=== PATIENT | female | born 1935 | race Caucasian/White ===

== ENCOUNTER 2016-05-06 10:53 | Inpatient (IN) | payer MEDICARE, OTHER ==
[~2016-05-06] VITALS: Ht 152.4 cm; Wt 86.5 kg
[2016-05-06] VITALS (7 sets, daily range): BP systolic 144–165; BP diastolic 48–86; PULSE 46–58; RESP 10–20; O2SAT 93–97
--- NOTE | 2016-05-06 10:57 | ED.REPORT ---
HPI-General Illness Date of Service May 06, 2016 ED Provider: Les Medina MD Pt is an 80 y.o. female who presents to the ED via EMS from [facility] for altered mental status. Staff at the care facility state that the pt has been fatigued and difficult to arouse. Her daughter, who currently lives in [place], was notified of these sx and called ED staff to state that they are similar to when she had hydrocephaly. The pt disclosed a sore throat to the nurse but denies this upon evaluation. She reports associated SOB. Denies nausea, vomiting , fever, and pain. Nursing Notes Stated Complaint: FALLING ASLEEP Chief Complaint: Neuro Symptoms/ Deficits Nursing Notes Reviewed: Yes Allergies: Coded Allergies: VAL Inhibitors (Unverified Allergy, Unknown, 05/06/16) General Time Seen by MD: 10:57 Transferred From: longterm Chief Complaint Altered mental status Hx Obtained From: Patient, Daughter, Elementary Education Tutor Arrived By: Ambulance Sudden in Onset?: Yes Onset Occurred: 9 - 12 hours ago Symptom Duration: Since onset Severity: Current: No pain currently Severity: Maximum: No pain Past Medical History Past Medical History Cerebrovascular disease NIDDM Daughter says she has had hydrocephalus Reports: Diabetes mellitus, Hypertension Social History Other Social History: Lives in [facility] Review of Systems Full Review of Systems Constitutional: Reports: Fatigue, Denies: Fever Ears / Nose / Throat: Denies: Sore throat Respiratory: Reports: Shortness of breath Cardiovascular: Denies: Chest pain GI: Denies: Abdominal pain, Nausea, Vomiting Neurologic: Reports: Change LOC Complete sys rev & neg: except as marked. Physical Exam Vital Signs Vital Signs Date Time Temp Pulse Resp B/P Pulse Ox O2 Delivery O2 Flow Rate FiO2 05/06/16 14:39 54 12 144/48 95 Room Air 05/06/16 14:29 58 17 145/64 95 Room Air 05/06/16 10:58 36.7 46 10 153/57 97 Room Air Initial VS: Reviewed Head / Eyes: Atraumatic, Normocephalic Abdomen / GI: No distention Extremities: Vascular intact, Neuro intact Skin: Warm, Dry, No cyanosis Psychiatric: Mood/affect normal, Behavior normal, Normal thought content General/Constitutional: No acute distress, Well appearing, Well developed, Well hydrated, Well nourished, Not toxic appearing Alertness: Positive: Sleeping but arousable ENT: Atraumatic, Airway patent, Pharynx NL Respiratory / Chest: Atraumatic, Breath sounds NL, Breath sounds = bilat, No respiratory distress Cardiovascular: Regular rhythm, Heart sounds NL, Peripheral circulation NL Heart Rate / Rhythm: Positive: Bradycardia No lower extremity edema Neurologic: Speech NL Mental Status: Positive: Disoriented to time, Negative: Disoriented to person, Disoriented to place Interpretation & Diagnostics Lab Results Interpretation Result Diagram: 05/06/16 1223 05/06/16 1223 Test 05/06/16 11:30 05/06/16 12:23 Urine Color Yellow (YELLOW) Urine Appearance Clear (CLEAR,HAZY) Urine pH 6.0 (5.0-8.0) Urine Specific [place] 1.016 (1.003-1.035) Urine Protein 30mg/dL (NEG,TRACE) Urine Glucose (UA) Negativemg/dL (NEGATIVE) Urine Ketones Negativemg/dL (NEGATIVE) Urine Occult Blood Negative (NEGATIVE) Urine Nitrite Negative (NEGATIVE) Urine Bilirubin Negative (NEGATIVE) Urine Urobilinogen Normalmg/dL (NORMAL) Urine Leukocyte Esterase Negative (NEGATIVE) Urine RBC 0-2/hpf (0-2) Urine WBC 0-5/hpf (0-5) Urine Epithelial Cells Few/hpf (NONE-MOD) Urine Crystals Oxalic acid crystals (NONE Urine Bacteria None/hpf (NONE-FEW) Urine Hyaline Casts None/lpf (NONE) Urine Granular Casts None seen (NONE SEEN) Urine Waxy Casts None seen (NONE SEEN) Urine Red Blood Cell Casts None seen (NONE SEEN) Urine White Blood Cell Casts None seen (NONE SEEN) Urine Mucus None seen (None Seen) Urine Trichomonas None seen (NONE SEEN) Urine Yeast None (NONE SEEN) Urinalysis Comment None Urine Culture Reflexed Not indicated White Blood Count 8.9th/mm3 (3.8-10.1) Red Blood Count 4.01mil/mm3 (3.90-5.20) Hemoglobin 11.7g/dL (12.0-15.6) Hematocrit 33.8% (35.0-46.0) Mean Corpuscular Volume 84.3fL (81-100) Mean Corpuscular Hemoglobin 29.2pg (27.0-35.0) Mean Corpuscular Hemoglobin Concent 34.6% (32.0-37.0) Red Cell Distribution Width 12.8% (12.3-15.4) Platelet Count 320bil/L (150-400) Neutrophils (%) (Auto) 63.9% (40-74) Lymphocytes (%) (Auto) 21.6% (14-46) Monocytes (%) (Auto) 9.5% (4-12) Eosinophils (%) (Auto) 4.3% (0-5) Basophils (%) (Auto) 0.5% (0-3) Sodium Level 121mEq/L (134-144) Potassium Level 3.9mEq/L (3.5-5.2) Chloride Level 83mEq/L (97-108) Carbon Dioxide Level 24mmol/L (18-29) Blood Urea Nitrogen 9mg/dL (8-27) Creatinine 0.86mg/dL (0.57-1.00) Estimat Glomerular Filtration Rate 91mL/min (>59) Glucose Level 76mg/dL (60-99) Lactic Acid Level 0.6mmol/L (0.4-2.0) Calcium Level 8.9mg/dL (8.5-10.1) Magnesium Level 1.6mg/dL (1.6-2.6) Total Bilirubin 0.3mg/dL (0.0-1.2) Aspartate Amino Transf (AST/SGOT) 16U/L (0-50) Alanine Aminotransferase (ALT/SGPT) 10U/L (0-32) Alkaline Phosphatase 76U/L (25-165) Troponin T 0.010ug/L (0.0-0.011) Total Protein 6.5g/dL (6.4-8.4) Albumin 3.6g/dL (3.4-5.0) ECG Interpretation Time: 12:11 Interpreted by: ED physician Normal ECG Interpretation: Normal sinus rhythm Rhythm / Conduction: Bradycardia (48) CT Head Interpretation IMPRESSION: 1. No definite acute cardiopulmonary disease. 2. Bilateral scattered hypodensities consistent with moderate chronic white matter small vessel ischemic changes. If there is clinical suspicion for superimposed acute process, further evaluation may be obtained with MRI. 3. Moderate cerebral volume loss. Dictated by: Cesar Clark M.D. on 05/06/2016 at 14:40 Approved by: Cesar Clark M.D. on 05/06/2016 at 14:42 Re-Eval/Medical Decision Consultation : Referral / Consult Name: Subhash Wing MD Consulted With: Hospitalist Core Winding Operator: Accepts admit Discharge & Departure Primary Impression: Hyponatremia Disposition: ADMITTED TO HOSPITAL Discharge Condition All VS Reviewed: Yes Kleveribobed Attestation Portions of this note were transcribed by Chavez Rico. I, Dr. Medina personally performed the history, physical exam and medical decision-making; I reviewed and confirmed the accuracy of the information in the transcribed note. Signed by: Sasha Torres, 05/06/16 and Les Reeves MD May 06, 2016 10:57 CHAVEZ RICO May 06, 2016 11:02
[2016-05-06] MEDS ORDERED: 0.9% Sodium Chloride 1,000 ML IV ONE (11:59)
[2016-05-06 12:29] LABS: BASOPHILS % (AUTO) 0.5 % (0-3); EOSINOPHILS % (AUTO) 4.3 % (0-5); MONOCYTES % (AUTO) 9.5 % (4-12); Mean Corpuscular Hemoglobin 29.2 pg (27.0-35.0); Mean Corpuscular Volume 84.3 fL (81-100); NEUTROPHILS % (AUTO) 63.9 % (40-74); Platelet Count 320 bil/L (150-400)
[2016-05-06 13:05] LABS: TROPONIN T 0.01 ug/L (0.0-0.011)
[2016-05-06 13:05] LABS: APPEARANCE,URINE CLEAR (CLEAR,HAZY); COLOR,URINE YELLOW (YELLOW); OCCULT BLOOD,URINE NEGATIVE (NEGATIVE); UROBILINOGEN,URINE NORMAL (NORMAL)
[2016-05-06 13:16] LABS: Magnesium 1.6 mg/dL (1.6-2.6)
--- NOTE | 2016-05-06 14:01 | DRSVH ---
PROCEDURE: X-RAY CHEST ONE VIEW, PORTABLE ([id number]) INDICATIONS: altered LOC TECHNIQUE: One view of the chest was acquired. COMPARISON: None. FINDINGS: Surgical changes and devices: None. Lungs and pleura: There is blunting of the left costophrenic angle suggestive of a small left pleural effusion. There is mild pulmonary edema. Mediastinum: Mediastinal contours appear normal. Heart size is enlarged. Bones and chest wall: No suspicious bony lesions. Overlying soft tissues appear unremarkable. IMPRESSION: 1. Cardiomegaly and mild pulmonary edema with a small pleural effusion. Findings are compatible wit h congestive heart failure. Dictated by: Cesar Clark M.D. on 05/06/2016 at 13:58 Approved by: Cesar Clark M.D. on 05/06/2016 at 13:59
--- NOTE | 2016-05-06 14:44 | DRSVH ---
PROCEDURE: CT BRAIN WITHOUT CONTRAST ([id number]) INDICATIONS: altered LOC TECHNIQUE: Noncontrast 4.5 mm thick angled axial sections acquired from the foramen magnum to the vertex, with c oronal reformats. COMPARISON: None. FINDINGS: Image quality: Excellent. CSF spaces: Basal cisterns are patent. No extra-axial fluid collections. The ventricles are symmet emma in size and shape. There is moderate cerebral volume loss, with resultant ventricular and sulcal prominence. Brain: No intracranial hemorrhage, mass, or mass effect. There are subcortical, periventricular and deep white matter hypodensities consistent with moderate chronic small vessel ischemic changes. The re is intracranial internal carotid artery atherosclerosis. Skull and face: Calvarium and visualized facial bones appear intact, without suspicious lesions. Sinuses: Visualized sinuses and mastoids are clear. IMPRESSION: 1. No definite acute cardiopulmonary disease. 2. Bilateral scattered hypodensities consistent with moderate chronic white matter small vessel isch emic changes. If there is clinical suspicion for superimposed acute process, further evaluation may be obtained with MRI. 3. Moderate cerebral volume loss. Dictated by: Cesar Clark M.D. on 05/06/2016 at 14:40 Approved by: Cesar Clark M.D. on 05/06/2016 at 14:42
[2016-05-06] MEDS ORDERED: Ondansetron 2 mg/mL 2 mL Inj IVPUSH PRN (15:10)
[2016-05-06] MEDS ORDERED: Alum-Mag Hydrox-Simeth 30 mL Suspension PO PRN (15:10)
--- NOTE | 2016-05-06 15:33 | PCM.HPMED ---
Subjective Date of Service May 06, 2016 Primary Provider: Admitting Physician: Subhash Wing MD Primary Care Physician: Portillo Bateman MD Attending Physician: Subhash Wing MD Chief Complaint: Generalized weakness HISTORY was OBTAINED FROM PATIENT for historian / [employer] NOTES History of present illness 80-year-old female resident of assisted living for a month (family had sent her from [facility]), who is noted to have decreased alertness, somnolence and not getting up from bed today and sore throat per assisted living staff. Recent new medication is cephalexin likely for sinus congestion and URI symptoms coughing and sore throat wheezing and new quetiapine since 05/04 and started. She denies asthma formally a smoker. Denies CHF denies weight gain denies fever or pain, no prior uti no vaginitis, urinary incontinence no diarrhea In the ER heart rate 3040 sinus, sodium 121. ER doctor was able to speak to one family member who mentioned hydrocephalus history, disoriented to time, aware of person/place per ER provider Review of Systems - none of the following - F/C/sick contact / wt change/ SCHMITT / lightheaded / dizziness / sob / cough / cp / acid reflux / n/v/diarrhea / bleeding/bruising / leg swelling / change in voiding / yeast infections / rash ambulates FAMILY HX father years old unknown cause, children with hypertension SOCIAL HX distant smoker quit 5 years ago MEDICATIONS Alphagan Atenolol 50 daily at bedtime amlodipine 10 mg clopidogrel 75 hydralazine 25 3 times a day valsartan 320 daily Glipizide 2.5 atorvastatin 5 mg daily at bedtime calcium iron vitamin D Keflex 250 twice a day starting May 06 for 5 days Protonix Quetiapine 25 daily at bedtime Sertraline 50 daily Albuterol especially on May 02 through the , April 13 through April 30 Vesicare 10 mg Past Medical/Surgical HX Cerebrovascular disease NIDDM / dyslipidemia hx hydrocephalus Hypertension mood gerd cataracs glaucoma Exam on admission repeats same questions, forgetful cooperative easily awakened NAD A and O x 3 mood affect WNL NC/AT no icterus no injected eyes EOMI PERRL /ERYTHEMATOUS pharyngeal lesions/ no oral lesions / hearing intact Supple neck CTAB equal chest rise / no accessory muscle use / speaks in full sentences / no rrw , loose cough audible wheeze RRR S1 S2 / no mrg / 2+ radial pulses Soft nt nd + BS no hepatosplenomegaly No edema no cyanosis no ecchymosis of lower extremities No rash / no jaundice KING symmetrical facies EKG SR RBBB Trop neg x 1 BNPpending urine lytes pending UA no leukocyte esterase and no nitrites no yeast no bacteria LFT normal Imaging CT BRAIN WITHOUT CONTRAST ([id number]) INDICATIONS: altered LOC TECHNIQUE: Noncontrast 4.5 mm thick angled axial sections acquired from the foramen magnum to the vertex, with coronal reformats. COMPARISON: None. FINDINGS: Image quality: Excellent. CSF spaces: Basal cisterns are patent. No extra-axial fluid collections. The ventricles are symmetric in size and shape. There is moderate cerebral volume loss, with resultant ventricular and sulcal prominence. Brain: No intracranial hemorrhage, mass, or mass effect. There are subcortical , periventricular and deep white matter hypodensities consistent with moderate chronic small vessel ischemic changes. There is intracranial internal carotid artery atherosclerosis. Skull and face: Calvarium and visualized facial bones appear intact, without suspicious lesions. Sinuses: Visualized sinuses and mastoids are clear. IMPRESSION: 1. No definite acute cardiopulmonary disease. 2. Bilateral scattered hypodensities consistent with moderate chronic white matter small vessel ischemic changes. If there is clinical suspicion for superimposed acute process, further evaluation may be obtained with MRI. 3. Moderate cerebral volume loss. PROCEDURE: X-RAY CHEST ONE VIEW, PORTABLE ([id number]) INDICATIONS: altered LOC TECHNIQUE: One view of the chest was acquired. COMPARISON: None. FINDINGS: Surgical changes and devices: None. Lungs and pleura: There is blunting of the left costophrenic angle suggestive of a small left pleural effusion. There is mild pulmonary edema. Mediastinum: Mediastinal contours appear normal. Heart size is enlarged. Bones and chest wall: No suspicious bony lesions. Overlying soft tissues appear unremarkable. IMPRESSION: 1. Cardiomegaly and mild pulmonary edema with a small pleural effusion. Findings are compatible with congestive heart failure. Active issues and reason for admission somnolence/forgetfulness found to have severe Hyponatremia, associated mild normocytic anemia --Pending TSH, vit d, serial sodium check Q4hr, urine lytes, fluid restrict 1.5L --s/p 1L NS in ER, IVF 50/hr now, consider diuresis --pending bnp/echo, serial trop, pending mag --hold sertraline/new quetiapine but continue losartan --evaluate URI/bronchitis Bradycardia w/ CXR consistent w/ CHF findings. --hold atenolol, not on diuretics, cont ARB hydralzine --continue clopidogrel -- denies cardiac hx. unclear if CVA hx sinus congestion/URI symptoms/bronchitis -rocephine for now, dc keflex -pending influenza sputum cx duonebs -incentive spirometer Chronic issues known prior to admission, present on admission CVA NIDDM / dyslipidemia hx hydrocephalus Hypertension mood gerd cataracs glaucoma overactive bladder --hold glyburide, increase hydralazine --hold vesicare, pending bladder scan, oxybutynin prn Diet DM /ssi DVT prophylaxis lovenox scd ambulate, on clopidogrel Code fdnr polst in chart Disposition inpt status , pending PT Assessment and plan were discussed with patient Allergies Coded Allergies: VAL Inhibitors (Unverified Allergy, Unknown, 05/06/16) Exam Vital Signs Vital Sign - Last Date Time Temp Pulse Resp B/P Pulse Ox O2 Delivery O2 Flow Rate FiO2 05/06/16 14:39 54 12 144/48 95 Room Air 05/06/16 10:58 36.7 Lab and Diagnostics Result Diagram: 05/06/16 1223 05/06/16 1223 Subhash Wing MD May 06, 2016 15:33
[2016-05-06] MEDS ORDERED: Glucose 40% Oral Gel 15 Gm Tube PO PRN (16:05)
[2016-05-06] MEDS ORDERED: Albuterol-Ipratropium 3 mL Inhalation Solution NEB PRN (16:10)
[2016-05-06] MEDS ORDERED: PANT40TA3 PO (16:54)
[2016-05-06] MEDS ORDERED: AMLO10TA3 PO (16:54)
[2016-05-06] MEDS ORDERED: FERR-83 PO (16:54)
[2016-05-06] MEDS ORDERED: HYDR-3939 PO (16:54)
[2016-05-06] MEDS ORDERED: MELA3TAB35 PO (16:54)
[2016-05-06] MEDS ORDERED: GLPZ5T PO (16:54)
[2016-05-06] MEDS ORDERED: ALPHAGAN P BOTH_EYES (16:54)
[2016-05-06] MEDS ORDERED: CLOP75TA28 PO (16:54)
[2016-05-06] MEDS ORDERED: QUET25TA73 PO (16:54)
[2016-05-06] MEDS ORDERED: CEPH250C PO (16:54)
[2016-05-06] MEDS ORDERED: ATRV10T PO (16:54)
[2016-05-06] MEDS ORDERED: ATEN50TA PO (16:54)
[2016-05-06] MEDS ORDERED: CALC600T20 PO (16:54)
[2016-05-06] MEDS ORDERED: [UNRECOGNIZED DRUG - REMARK] TOPICAL (16:55)
[2016-05-06] MEDS ORDERED: ALBU18HF INH ×2 (16:55)
[2016-05-06] MEDS ORDERED: ACET325T51 PO (16:55)
[2016-05-06] MEDS ORDERED: CALC215T4 PO (16:55)
[2016-05-06] MEDS ORDERED: SENN-133 PO (16:55)
[2016-05-06] MEDS ORDERED: VITA1TAB27 PO (16:55)
[2016-05-06] MEDS ORDERED: VALS320T12 PO (16:55)
[2016-05-06] MEDS ORDERED: SOLI10TA PO (16:55)
[2016-05-06] MEDS ORDERED: TRAM50TA2 PO ×2 (16:55)
[2016-05-06] MEDS ORDERED: CLOT135C TP (16:55)
[2016-05-06] MEDS ORDERED: CYAN10008 PO (16:55)
[2016-05-06] MEDS ORDERED: NYST1POW23 MC (16:55)
[2016-05-06 16:59] LABS: Magnesium 1.6 mg/dL (1.6-2.6)
[2016-05-06] MEDS: Insulin LISPRO 300 Unit/3 mL Inj SUBQ SCH ×2 (17:30→21:29)
[2016-05-06] MEDS: 0.9% Sodium Chloride 1,000 ML IV SCH (17:34)
[2016-05-06 18:05] LABS: OSMOLALITY, URINE 414 mOs/kH2O (250-1200)
[2016-05-06] MEDS: cefTRIAXone Inj 1,000 MG in Dextrose 5% Minibag Plus 50 ML IV SCH (18:05)
--- NOTE | 2016-05-06 19:33 | NUR ---
Arrival to Floor Patient arrived to floor from ED via stretcher. Patient slid into hospital bed. Ordered fluids administered. Patient alert and oriented, denies pain. Care is ongoing.
[2016-05-06 21:09] LABS: TROPONIN T < 0.010 ug/L (0.0-0.011)
[2016-05-06] MEDS: Brimonidine 0.1% 5 mL Ophthalmic Solution BOTH_EYES SCH (21:22)
[2016-05-06] MEDS: Nystatin 100,000 Unit/Gm 15 Gm Powder TOPICAL SCH (21:27)
--- NOTE | 2016-05-06 22:24 | NUR ---
anxiety patient anxious. calling out. showed how to use call hough multiple times. but does not demonstrate use. re oriented patient. reassured patient. frequent rounding. patient has frequency with urination. uses bed sierra but is also incontinent. calmoseptine applied to sacrum . nystatin powder to bilateral groin. will cont. to monitor.
[2016-05-07] VITALS (10 sets, daily range): BP systolic 155–179; BP diastolic 65–73; PULSE 53–78; RESP 18–20; O2SAT 95–98
--- NOTE | 2016-05-07 06:38 | NUR ---
urinary frequency patient requesting to void every 20-30 minutes. placed on bed sierra multiple times. also incontinent multiple times. patient did not sleep the entire night. did not use call light. called out for help. reoriented multiple times. care ongoing.
[2016-05-07] MEDS: Insulin LISPRO 300 Unit/3 mL Inj SUBQ SCH ×4 (08:00→22:00)
[2016-05-07] MEDS: 0.9% Sodium Chloride 1,000 ML IV SCH (08:26)
[2016-05-07] MEDS: Pantoprazole 20 mg ER24 Tablet PO SCH (08:27)
[2016-05-07] MEDS: Nystatin 100,000 Unit/Gm 15 Gm Powder TOPICAL SCH ×2 (08:29→20:03)
[2016-05-07] MEDS: Brimonidine 0.1% 5 mL Ophthalmic Solution BOTH_EYES SCH ×2 (08:30→20:02)
[2016-05-07 09:08] LABS: Thyroxine (T4) 6.9 ug/dL (4.5-12.0)
--- NOTE | 2016-05-07 09:16 | NUR ---
Evaluation completed. Please go to "Notes" then click on "Assessments and Notes" (bottom left corner of screen). Then select appropriate discipline tab on top of screen.
[2016-05-07] MEDS: Albuterol-Ipratropium 3 mL Inhalation Solution NEB SCH ×4 (10:37→20:17)
--- NOTE | 2016-05-07 11:35 | DRSVH ---
PROCEDURE: X-RAY CHEST ONE VIEW, PORTABLE ([id number]) INDICATIONS: wheezing TECHNIQUE: One view of the chest was acquired. COMPARISON: [facility], CR, XR CHEST 1VW (PORTABLE), 05/06/2016, 12:02. FINDINGS: Surgical changes and devices: None. Lungs and pleura: No pneumothorax. Small pleural effusion.. Mild diffuse interstitial pulmonary opac ity is unchanged. Mediastinum: Mediastinal contours appear normal. Heart size is enlarged. Bones and chest wall: No suspicious bony lesions. Overlying soft tissues appear unremarkable. IMPRESSION: No change in mild CHF versus atypical pneumonia. No change in small left pleural effusio n. Dictated by: Shelley Bahena M.D. on 05/07/2016 at 11:33 Approved by: Shelley Bahena M.D. on 05/07/2016 at 11:34
--- NOTE | 2016-05-07 12:50 | PCM.PNMED ---
Subjective Date of Service May 07, 2016 Subjective no complaints overnight - wheezy this AM, reports ongoing for a couple wks - cont IV ceftriaxone now. no focal neurolog deficits or weakness reported. Pt reports living in [place] and plan to return home - no cp/f now Exam Vital Signs Vital Sign - Last Date Time Temp Pulse Resp B/P Pulse Ox O2 Delivery O2 Flow Rate FiO2 05/07/16 05:56 56 05/07/16 05:04 36.2 20 168/67 97 Room Air Intake and Output 05/06/16 05/06/16 05/07/16 Cumulative From/Thru 15:00 23:00 07:00 05/06/16 10:58 - 05/07/16 05:11 Intake Total 240 ml 675 ml 915 ml Output Total 200 ml 200 ml Balance 40 ml 675 ml 715 ml Intake Oral 240 ml 240 ml IV Total 675 ml 675 ml Output Urine Total 200 ml 200 ml # Voids 1 1 Exam NAD A and O x 3 mood affect WNL NC/AT no icterus no injected eyes EOMI PERRL /ERYTHEMATOUS pharyngeal lesions/ no oral lesions / hearing intact Supple neck CTAB equal chest rise / no accessory muscle use / speaks in full sentences / no rrw , loose cough audible wheeze RRR S1 S2 / no mrg / 2+ radial pulses Soft nt nd + BS no hepatosplenomegaly No edema no cyanosis no ecchymosis of lower extremities No rash / no jaundice IVs and Medications Medications Reviewed: Medications were reviewed in detail Lab and Diagnostics Result Diagram: 05/06/16 1223 05/07/16 0420 X-Rays, CTs and MRIs IMPRESSION: No change in mild CHF versus atypical pneumonia. No change in small left pleural effusion. Dictated by: Shelley Bahena M.D. on 05/07/2016 at 11:33 12-lead ECG RBBB bradycardic Assessment & Plan somnolence/forgetfulness found to have severe Hyponatremia, associated mild normocytic anemia --tsh ok, serial sodium check Q4hr, urine lytes, fluid restrict 1.5L --s/p 1L NS in ER, IVF 50/hr ---stopped, follow labs --pending bnp/echo, serial trop, pending mag --hold sertraline/new quetiapine but continue losartan --evaluate URI/bronchitis hyponatremia, likely euvolemic +medicatoin - consider SIADH, improving w/ NS, unclear if acute or subacute, likely contributory bronchitis and new quetiapine , no neurolog findings concerning for CPD --BNP normal, no abnormal LFT/Cr --U osm 400s, Serum osm 259 --Robbie 44, albeit hx of DM --Repeat Na levels this AM Bradycardia w/ CXR consistent w/ CHF findings. recheck Na and consider diuresis --hold atenolol, not on diuretics, cont ARB hydralzine --continue clopidogrel -- denies cardiac hx. unclear if CVA hx sinus congestion/URI symptoms/bronchitis -cont rocephine, dc keflex -pending influenza sputum cx duonebs -incentive spirometer -duoneb added Chronic issues known prior to admission, present on admission CVA NIDDM / dyslipidemia hx hydrocephalus Hypertension mood gerd cataracs glaucoma overactive bladder --hold glyburide, increase hydralazine --hold vesicare, pending bladder scan, oxybutynin prn Diet DM /ssi DVT prophylaxis lovenox scd ambulate, on clopidogrel Code dnr polst in chart Disposition inpt status Pain Evaluation: Adequate Pain Control GI Prophylaxis: Proton Pump Inhibitor VTE Prophylaxis: Sub-Q Enoxaparin VTE Mechanical Devices: Intermittant Pneumatic CD Resuscitation Status: DNR/DNI:Do Not Resuscitate/Intubate Time spent 40 minutes spent with anthony and Nithin Urrutia DO May 07, 2016 07:08
--- NOTE | 2016-05-07 13:38 | NUR ---
Social Work: Initial Assessment Data/assessment: Per EMR review, pt is an 80 year old female admitted for hyponatremia. Pt has Medicare part A&B with no supplement or LTC insurance; pt has some kind of VA coverage (per [facility] RN). PCP is Portillo Bateman MD. NOK Is Jaquelin Donahue, . POLST on file- AD not completed, information left at bedside. Readmit score is low, 1. CNC MAINTENANCE MECHANIC met with pt at bedside. Pt is not oriented to time or current situation and does not remember living at [facility]. CNC MAINTENANCE MECHANIC attempted to contact pt's dtr, to complete initial assessment. No answer. Left message. t/c to [facility]. CNC MAINTENANCE MECHANIC spoke with pt's RN, Jackelyn. She states pt is normally w/c bound and SBA for transfers. They assist with transfers, medications, bathing and some toileting. Pt's family is aware of her admission to [facility] and are on a flight from [place]. Pt was moved in to [facility] from [place] one month ago as pt's care needs were advancing. Per [facility] RN, the family intends for the pt to stay at [facility] due to her increasing care needs. [facility] will need to complete a bedside assessment with the pt prior to admission back. Code Enforcement Officer, Shaila ([phone]) will be in on Sunday to discuss this. Plan: Anticipate pt to discharge back to [facility] pending bedside assessment; CNC MAINTENANCE MECHANIC to follow up with [facility] Code Enforcement Officer on Sunday to arrange for this. CNC MAINTENANCE MECHANIC to continue to follow. AMRIK Nuñez Addendum: 05/07/16 at 1348 by ANGELO WARD Amended: Links added.
[2016-05-07] MEDS: cefTRIAXone Inj 1,000 MG in Dextrose 5% Minibag Plus 50 ML IV SCH (16:45)
--- NOTE | 2016-05-07 18:21 | NUR ---
Urinary Frequency, Orientation Patient continues to have urinary frequency this shift, needing to void frequently this shift. Patient continues to be somewhat confused this shift. Patient oriented to self and season, occasionally place. Patient mostly appropriate in conversation, but requires frequent reorientation to call light, tele lead purpose, etc. Care is ongoing.
[2016-05-08] VITALS (13 sets, daily range): BP systolic 135–165; BP diastolic 66–79; PULSE 61–76; RESP 16–20; O2SAT 63–98
--- NOTE | 2016-05-08 04:07 | NUR ---
Sleep / mentation Vitals and assessment deferred to protect pt sleep. Bed alarm on for safety, pt remains disoriented about location and situation when awake. Sitter unavailable, [facility] staff members in close attendance for safety.
[2016-05-08] MEDS: Pantoprazole 20 mg ER24 Tablet PO SCH (06:47)
--- NOTE | 2016-05-08 07:24 | NUR ---
Urinary retention Pt unable to use bedpan at 0530; bladder scan showed >[address] hunt catheter per Md note when pt reported urinating spontaneously. Brief weighted at 300 cc, PVR bladder scan without residual. Will continue monitoring.
[2016-05-08] MEDS: Insulin LISPRO 300 Unit/3 mL Inj SUBQ SCH ×4 (07:52→22:00)
[2016-05-08] MEDS: Brimonidine 0.1% 5 mL Ophthalmic Solution BOTH_EYES SCH ×2 (07:58→21:00)
[2016-05-08] MEDS: Albuterol-Ipratropium 3 mL Inhalation Solution NEB SCH ×3 (08:06→20:05)
--- NOTE | 2016-05-08 10:56 | NUR ---
Called and left message for Shaila at [facility] [phone], asked her for call back regarding coordination for patient and bedside assessment today. Updated MATCH UP WORKER Addendum: 05/08/16 at 1412 by TYSON SEN CM Faxed clinicals to [facility] per [facility] [phone]
[2016-05-08] MEDS: Nystatin 100,000 Unit/Gm 15 Gm Powder TOPICAL SCH ×2 (11:56→21:01)
--- NOTE | 2016-05-08 14:38 | PCM.PNMED ---
Subjective Date of Service May 08, 2016 Subjective Pleasantly confused. Has no complaints of chest pain, dyspnea, nausea or vomiting. She tells me she awoke disoriented this morning thought she was at home before she reoriented and figured out she was in the hospital. Exam Vital Signs Vital Sign - Last Date Time Temp Pulse Resp B/P Pulse Ox O2 Delivery O2 Flow Rate FiO2 05/08/16 13:02 70 20 95 Room Air 05/08/16 11:56 36.2 135/77 Intake and Output 05/07/16 05/07/16 05/08/16 Cumulative From/Thru 15:00 23:00 07:00 05/06/16 10:58 - 05/08/16 06:14 Intake Total 300 ml 700 ml 100 ml 2015 ml Output Total 400 ml 300 ml 300 ml 1200 ml Balance -100 ml 400 ml -200 ml 815 ml Intake Oral 300 ml 700 ml 100 ml 1340 ml IV Total 675 ml Output Urine Total 400 ml 300 ml 300 ml 1200 ml # Voids 10 11 22 Exam Gen.- A+ O 2-3 no apparent distress. Pleasant obese elderly female sitting up in bed Eyes- open conjunctiva clear, pupils equal nonicteric, no drainage ENT- ears normal, nose normal Neck- supple/trach midline CVS- RRR no murmur or gallop Lungs- CTA GI- NABS/NT soft Musc- moving 4 no obvious deformity Neuro- cranial nerves II through XII intact to gross examination, nonfocal Skin- warm and dry, no rashes/lesions/wounds noted Psych- pleasant and appropriate, Lab and Diagnostics Result Diagram: 05/06/16 1223 05/07/161999 X-Rays, CTs and MRIs IMPRESSION: No change in mild CHF versus atypical pneumonia. No change in small left pleural effusion. Dictated by: Shelley Bahena M.D. on 05/07/2016 at 11:33 12-lead ECG RBBB bradycardic Assessment & Plan 80-year-old female living at [place] and independently presents with confusion and hyponatremia 05/08 and 8 down to 124, starting 1 L fluid restriction, salt tablets, furosemide, follow-up basic metabolic panel in a.m., call out to jet Yost - no answer after 10 rings. #encephalopathy/dementia- patient currently not safe for independent living. We will request cognitive evaluation. #Weakness, patient below baseline recommendation that patient go to SNF on discharge per PT #hyponatremia, SIADH, --U osm 400s, Serum osm 259 --Robbie 44, -Starting furosemide, salt tablets 05/08 Bradycardia w/ CXR consistent w/ CHF findings. recheck Na and consider diuresis --hold atenolol, not on diuretics, cont ARB hydralzine --continue clopidogrel -- denies cardiac hx. unclear if CVA hx sinus congestion/URI symptoms/bronchitis -tx'd 5 days rocephin, d/c 05/08 -incentive spirometer -duoneb prn Chronic issues known prior to admission, present on admission CVA NIDDM / dyslipidemia hx hydrocephalus Hypertension mood gerd cataracs glaucoma overactive bladder --hold glyburide, increase hydralazine --hold vesicare, pending bladder scan, oxybutynin prn Diet DM /ssi DVT prophylaxis lovenox scd ambulate, on clopidogrel Code dnr polst in chart Disposition inpt status GI Prophylaxis: Proton Pump Inhibitor VTE Prophylaxis: Sub-Q Enoxaparin VTE Mechanical Devices: Intermittant Pneumatic CD Resuscitation Status: DNR/DNI:Do Not Resuscitate/Intubate Curry Trujillo MD May 08, 2016 14:38 Curry Trujillo MD May 08, 2016 14:38
--- NOTE | 2016-05-08 16:01 | DRSVH ---
[facility] [address] [place] [address] Echocardiogram Report Name: MARIA C MONIQUE MStudy Date: Height: 60 in Hospital Exam Location: [facility] Weight: 195 lb Gender: Female BSA: 1.8 m2 : 1935 Age: 80 yrs BP: 143/76 mmHg Reason For Study: Congestive Heart Failure Ordering Physician: Performed By: Nida Baker HOSPITALIST [facility] Interpretation Summary The study quality was technically difficult. The ejection fraction is estimated to be 65-70%. The left atrium is severely dilated. The mitral valve is not well visualized. The mitral valve leaflets are severely calcified. There is moderate mitral stenosis. There is no hemodynamically significant valvular aortic stenosis. Consider TONE to evauate MS Procedure: A two-dimensional transthoracic echocardiogram with color flow and Doppler was performed. The study quality was technically difficult. A contrast injection of Definity was performed to improve assessment of LV function. There is no prior echocardiogram noted for this patient. The patient was in normal sinus rhythm during the exam. Left Ventricle: The left ventricle is normal in size. Left ventricular wall thickness is mildly increased. The ejection fraction is estimated to be 65- 70%. Diastolic function could not be accurately assessed due to confounding valvular disease. Right Ventricle: The right ventricle grossly appears normal in size with probable normal systolic function. Atria: The left atrium is severely dilated. Right atrium not well visualized. Mitral Valve: The mitral valve is not well visualized. The mitral valve leaflets are severely calcified. There is moderate mitral stenosis. The mitral valve mean gradient is 8.2 mmHg. There is no mitral regurgitation noted. Aortic Valve: The aortic valve is not well visualized. There is no hemodynamically significant valvular aortic stenosis. No aortic regurgitation is present. Tricuspid Valve: The tricuspid valve is not well visualized, but is grossly normal. There is a trace or physiologic amount of tricuspid regurgitation. Pulmonary artery pressures cannot be estimated because of the lack of a measurable TR jet velocity. Pulmonic Valve: The pulmonic valve is not well visualized. Great Vessels: The aortic root is normal size. The ascending aorta is normal in size. The IVC is of normal diameter and collapses greater than 50% with a sniff. This suggests a low right atrial pressure of 3 mm Hg. Pericardium/ Pleura There is a small pericardial effusion that is circumferential. MMode/2D Measurements & Calculations LVIDd: 4.0 cm LA dimension LVOT diam LV la. diameter/BSA LVIDs: 3.1 cm (cm/m^2): 2.2 FS: 22.6 % LA A2 area AoV Opening IVSd: 1.3 cm LVPWd: 1.1 cm Ao root diam LA A4 area asc Aorta LA length (vol) Diam: 2.9 cm LA vol: 94.0 ml LA vol index IVC diam: 1.8 cm LV sys. diameter/BSA (cm/m^2): 1.7 Doppler Measurements & Calculations Ao V2 max MV E max yan MV E/A: 0.65 PA V2 max : 202.6 cm/sec : 113.8 cm/sec Med Peak E' Yan : 82.5 cm/sec Ao max PG MV A max yan PA mean PG : 16.4 mmHg : 175.6 cm/sec E/E' med: 30.0 Ao mean PG MV P1/2t: 161.7 msec Pulm A Revs Dur PA Accel Time : 0.14 sec LVOT Max Yan MVA(VTI): 1.7 cm2 MV A dur: 0.17 sec : 131.2 cm/sec EN(I,D): 2.1 cm sev ratio MV V2 mean MV P1/2t max yan Ao V2 mean LV V1 max PG : 126.9 cm/sec : 135.3 cm/sec MV mean PG MVA(P1/2t): 1.4 cm2 Ao V2 VTI: 47.0 cm LV V1 VTI EN(V,D): 2.1 cm2 : 30.2 cm MV V2 VTI MV dec time : 0.55 sec PA V2 mean EN indexed to BSA Beverly Yarbrough Dur - MV A : 58.4 cm/sec (cm^2/m^2): 1.2 Dur: -0.06 msec Electronically signed by: Bruno Felton on Reading Physician:05/08/2016 04:00 PM
--- NOTE | 2016-05-08 16:10 | NUR ---
Social Work Note - Continued Discharge Planning: D/A: The Pt is an 80 y/o female that is now on day 2 of admission for hyponatremia. PT eval completed, recommending 24/7 assit vs SNF. KARMEN t/c to [facility] regarding a possible bedside assessment. Clinicals requested, faxed. [facility] to contact regarding date and time availability for bedside assessment. [facility] informed that the Pts daughter had some questions and concerns regarding the Pts discharge. KARMEN t/c to daughter to discuss discharge planning and PT recommendations. Daughter requests Neurology consult to be placed, SW to request during morning rounds. Daughter requested to be present during the bedside assessment and when the Pt is to be discharged, informed SW that she would not be in the area until Sunday. SW informed the Pts daughter that the Pt is not ready for discharge at this time and will update her when the information becomes available. SW also informed the Pts daughter that we could not keep the Pt at the hospital if she was medically stable for discharge. KARMEN t/c from [facility] to further discuss PT recommendations of returning to [facility] if they are able to provide Min/ModA w/mobility, otherwise SNF. Transport via [facility]. [facility] reports that they received the clinicals and will be in for a bedside assessment tomorrow morning. KARMEN t/c to daughter, informed daughter that [facility] will be completing a bedside assessment tomorrow morning. SW will continue to follow. P: The Pt is not ready for discharge at this time. PT eval completed, recommending 24/7 assist vs SNF. [facility] to contact regarding bed assessment availability. SW will continue to follow. Carolina Lawrence MSW Vp Analysis AMRIK Grady
[2016-05-08] MEDS ORDERED: Magnesium Hydroxide 355 mL Oral Suspension PO PRN (17:10)
--- NOTE | 2016-05-08 19:30 | NUR ---
MENTATION Patient was alert and oriented X 3 this morning, however, has intermittent confusion. Frequent redirection needed. Denies pain. Tolerating liquids PO and her diet well. Denies nausea. No emesis noted. Denies SOB. Unable to void. Bladder scanned-405 noted. Per orders IFC inserted. [place] alarm is on at this time.
[2016-05-08] MEDS: Senna-Docusate 8.6-50 mg Tablet PO PRN (21:01)
[2016-05-09] VITALS (10 sets, daily range): BP systolic 147–171; BP diastolic 64–78; PULSE 72–89; RESP 16–20; O2SAT 94–96
[2016-05-09] MEDS: Albuterol-Ipratropium 3 mL Inhalation Solution NEB SCH ×4 (04:39→22:35)
--- NOTE | 2016-05-09 05:20 | NUR ---
Activity Intermittent confusion continues, bed alarm engaged for safety. Pt reports being comfortable, observed sleeping well in night; hunt catheter patent. Hourly rounding ongoing.
[2016-05-09] MEDS: Pantoprazole 20 mg ER24 Tablet PO SCH (06:16)
[2016-05-09] MEDS: Insulin LISPRO 300 Unit/3 mL Inj SUBQ SCH ×4 (08:00→22:00)
[2016-05-09] MEDS: Brimonidine 0.1% 5 mL Ophthalmic Solution BOTH_EYES SCH ×2 (08:59→20:57)
[2016-05-09] MEDS: Senna-Docusate 8.6-50 mg Tablet PO PRN (09:01)
[2016-05-09] MEDS: Nystatin 100,000 Unit/Gm 15 Gm Powder TOPICAL SCH ×2 (09:01→20:57)
--- NOTE | 2016-05-09 11:48 | NUR ---
Case Management: EMILIANA given and explained to pt at 11:15. Sindi DWYERRN
--- NOTE | 2016-05-09 13:04 | PCM.PNMED ---
Subjective Date of Service May 09, 2016 Subjective No complaints, very confused. Denies chest pain, dyspnea, nausea vomiting. Exam Vital Signs Vital Sign - Last Date Time Temp Pulse Resp B/P Pulse Ox O2 Delivery O2 Flow Rate FiO2 05/09/16 12:51 36.7 75 18 147/ 94 Room Air Intake and Output 05/08/16 05/08/16 05/09/16 Cumulative From/Thru 15:00 23:00 07:00 05/06/16 10:58 - 05/09/16 06:33 Intake Total 500 ml 500 ml 3015 ml Output Total 400 ml 1450 ml 3050 ml Balance 100 ml -950 ml -35 ml Intake Oral 500 ml 500 ml 2340 ml IV Total 675 ml Output Urine Total 400 ml 1450 ml 3050 ml # Voids 22 # Bowel Movements 0 0 Exam Gen.- A+ O 1-2 no apparent distress. Pleasant obese elderly female sitting up in bed Eyes- open conjunctiva clear, pupils equal nonicteric, no drainage ENT- ears normal, nose normal Neck- supple/trach midline CVS-normal rate Lungs-regular respirations nonlabored GI-generous pannus Musc- moving 4 no obvious deformity Neuro- cranial nerves II through XII intact to gross examination, nonfocal Skin- warm and dry, no rashes/lesions/wounds noted Psych- pleasant and appropriate, Lab and Diagnostics Result Diagram: 05/06/16 1223 05/09/16 0550 X-Rays, CTs and MRIs IMPRESSION: No change in mild CHF versus atypical pneumonia. No change in small left pleural effusion. Dictated by: Shelley Bahena M.D. on 05/07/2016 at 11:33 12-lead ECG RBBB bradycardic Assessment & Plan 80-year-old female living at [place] and independently presents with confusion and hyponatremia 05/08 NA was up to 128 down to 124, starting 1 L fluid restriction, salt tablets, furosemide, follow-up basic metabolic panel in a.m., call out to daughter Hansa Yost - no answer after 10 rings. 05/09 spoke to daughter Hansa today. She expressed concerns about patient hydrocephalus, not knowing about the diagnosis of dementia and a desire to see a neurologist. Daughter to be in the area 05/11 ?ASA failure- CVA fall 2016 on ASA? #encephalopathy/dementia/ cerebrovasc dz/ Hx hydrocephalus- patient currently not safe for independent living. cognitive evaluation by speech pending. 05/08. -Dementia workup all but completely, MRI ordered as well as B12 level 05/09. TSH normal I do not think an RPR as indicated, speech cognitive evaluation pending. -Stopping oxybutynin as this can worsen delirium and elderly and the fact that she is having trouble urinating. -Outpatient referral to neurology on discharge #Weakness, patient below baseline recommendation that patient go to SNF on discharge per PT -Working on discharge to [facility] 05/10 #Urinary retention-stopping oxybutynin 05/09 #hyponatremia, SIADH, --U osm 400s, Serum osm 259 --Robbie 44, -Starting furosemide, salt tablets 05/08, Na 128 05/09, decreasing them to daily, checking sodium in a.m. 05/10 Bradycardia w/ CXR consistent w/ CHF findings. recheck Na and consider diuresis --hold atenolol, not on diuretics, cont ARB hydralzine --continue clopidogrel -- denies cardiac hx. unclear if CVA hx, does not appear patient was on clopidogrel here, starting aspirin need to be followed up if she was in aspirin failure when she had CVA in the fall in [place] sinus congestion/URI symptoms/bronchitis -tx'd 5 days rocephin, d/c 05/08 -incentive spirometer -duoneb prn Chronic issues known prior to admission, present on admission CVA -starting aspirin 05/09 in addition to statin NIDDM / dyslipidemia hx hydrocephalus Hypertension-simple falling blood pressure regimen mood gerd cataracs glaucoma overactive bladder-now urinary retention with oxybutynin its being discontinued 05/09 --hold glyburide, increase hydralazine --hold vesicare, pending bladder scan, oxybutynin prn Diet DM /ssi DVT prophylaxis lovenox scd ambulate, on clopidogrel Code dnr polst in chart Disposition inpt status GI Prophylaxis: Proton Pump Inhibitor VTE Prophylaxis: Sub-Q Enoxaparin VTE Mechanical Devices: Intermittant Pneumatic CD Resuscitation Status: DNR/DNI:Do Not Resuscitate/Intubate Curry Trujillo MD May 09, 2016 13:04
--- NOTE | 2016-05-09 14:21 | NUR ---
Transfer note- Patient alert to place and time, but forgetting to use call light and calling out for help. Despite many explanations she continued to yell out and ask for many small requests. This behavior has improved with a sitter with patient and as the day progressed. Denies discomfort. Up at bedside with PT. Transferred via bed to [facility]. Report given to receiving RN.
--- NOTE | 2016-05-09 14:29 | NUR ---
To [facility] Patient report called to [facility] nurse by Isaac Klein. Patient arrived via bed with 1:1 sitter at side. Patient is alert and confused. Patient unsure why she is in hospital or how she got here. Patient was oriented to room and call light system. Patient denied pain.
--- NOTE | 2016-05-09 16:23 | NUR ---
Social Work Note -Continued Discharge Planning Data: EMR reviewed. Pt is on day 3 of hospitalization for hyponatremia. PT eval completed, recommending SNF at this time. SW attempted to choice pt but was unable as pt is not oriented to place or time. SW called pt's daughter Jaquelin Donahue, and [phone] regarding SNF recommendations and SNF choice. SW was unable to contact Jaquelin. SW spoke with [facility], wellness department at [facility], who states that pt's PT needs are too great to be managed at [facility] at this time. [facility] encouraged SW to schedule another bedside assessment if necessary prior to discharge. SW to follow up with pt/family regarding SNF recommendations. Assessment: Pt who would benefit from SNF. Plan: PT recommending SNF at discharge. SW to follow up with pt's daughter regarding SNF choice/ recommendations. AMRIK Kaur
--- NOTE | 2016-05-09 20:40 | DRSVH ---
PROCEDURE: MRI BRAIN WITHOUT CONTRAST ([id number]) INDICATIONS: altered LOC TECHNIQUE: Non-contrast axial T1 spin echo, axial T2 fast spin echo, sagittal and axial FLAIR, coronal T2 fast s pin echo, axial gradient echo, axial diffusion and ADC through the brain. COMPARISON: [facility], CT, CT BRAIN WO CON, 05/06/2016, 13:54. FINDINGS: Image quality: There is motion artifact limiting evaluation. CSF spaces: There is moderate to severe cerebral volume loss with prominence of the ventricles and taylor lci. Basal cisterns are patent. No extra-axial fluid collections. Brain: Diffusion-weighted images demonstrate no acute infarcts. No definite intracranial hemorrhage, mass, or mass effect. There are subcortical, periventricular and deep white matter areas of T2 hyp erintensity consistent with moderate chronic small vessel ischemic changes. Brainstem appears normal . Normal intravascular flow voids are present. Skull and face: Calvarial bone marrow is normal in signal. Orbits are normal. Sinuses: There is fluid opacification in the mastoid air cells bilaterally consistent with mastoiditi s. There is also mild mucosal thickening within the maxillary and ethmoid sinuses. IMPRESSION: 1. No evidence of acute infarct. 2. Moderate to severe cerebral volume loss and moderate chronic white matter small vessel ischemic c hanges. 3. Bilateral mastoiditis. Dictated by: Cesar Clark M.D. on 05/09/2016 at 20:29 Approved by: Cesar Clark M.D. on 05/09/2016 at 20:38
[2016-05-10] VITALS (10 sets, daily range): BP systolic 108–132; BP diastolic 64–72; PULSE 69–80; RESP 16–20; O2SAT 94–96
[2016-05-10] MEDS: Albuterol-Ipratropium 3 mL Inhalation Solution NEB SCH ×4 (02:18→21:18)
--- NOTE | 2016-05-10 05:47 | NUR ---
Compliance Pt has been calm, cooperative, compliant, and pleasant with staff al shift. Pt able to tell this Rn she is in the hospital, not sure what one but said "[facility]" and able to tell me the year. Pt unsure of why she is in the hospital. Bed alarm on all night but Pt has not set if off or attempted to get out of bed once. Pt is being turned Q4 hours.
[2016-05-10] MEDS: Insulin LISPRO 300 Unit/3 mL Inj SUBQ SCH ×4 (07:40→20:56)
[2016-05-10] MEDS: Nystatin 100,000 Unit/Gm 15 Gm Powder TOPICAL SCH ×2 (07:55→19:08)
[2016-05-10] MEDS: Brimonidine 0.1% 5 mL Ophthalmic Solution BOTH_EYES SCH ×2 (07:56→19:07)
[2016-05-10] MEDS: Pantoprazole 20 mg ER24 Tablet PO SCH (07:58)
[2016-05-10 08:30] LABS: BASOPHILS % (AUTO) 0.3 % (0-3); EOSINOPHILS % (AUTO) 3.5 % (0-5); MONOCYTES % (AUTO) 10.4 % (4-12); Mean Corpuscular Hemoglobin 28.8 pg (27.0-35.0); NEUTROPHILS % (AUTO) 60.4 % (40-74); Platelet Count 342 bil/L (150-400)
--- NOTE | 2016-05-10 10:30 | NUR ---
EMILIANA signed Voice mail left on pt's daughter's phone. AMRIK Arellano
--- NOTE | 2016-05-10 12:55 | NUR ---
Social Work: Readiness for d/c Data: Pt is on day 4 of hospitalization. EMR reviewed. BUILDING INSPECTOR called pt's daughter regarding d/c planning, no answer. BUILDING INSPECTOR left a message. BUILDING INSPECTOR requested a call back with their first and second SNF choices for pt, BUILDING INSPECTOR listed local SNF in voice mail. MD states pt likely ready for d/c tomorrow. BUILDING INSPECTOR requested UR specialist refer pt to local SNF's so that choices are available if pt discharges tomorrow. Pt continues to have a sitter and will not be able to go to SNF until free of sitter for 24 hours. [facility] evaluated pt on 05/09 and states they cannot take pt back as she currently is and could take her back if she improves or after SNF stay. BUILDING INSPECTOR will continue to follow. Assessment: Pt from [facility]. Plan: Pt will d/c likely to SNF when medically stable, likely tomorrow per . BUILDING INSPECTOR awaiting phone call from pt's daughter. UR specialist to send out broad referral of local SNF's. AMRIK Arellano
--- NOTE | 2016-05-10 13:00 | NUR ---
Reina teran'adalid Huang dc'adalid intact, pt tolerated well. Addendum: 05/10/16 at 1808 by CAMMIE DIAZ RN Pt has been voiding spontaneously, denies any discomfort/burning. PVR done after first void, no residual noted. Educated pt on signs of retention and to notify staff if feeling uncomfortable.
--- NOTE | 2016-05-10 14:08 | NUR ---
Gave access and faxed facesheet to LEONOR,JUAN MANUEL, Simran Girard and Deana per [employer] BUILDER APPRENTICE
--- NOTE | 2016-05-10 17:49 | PCM.PNMED ---
Subjective Date of Service May 10, 2016 Subjective Uneventful overnight Patient report she is doing well this morning. She is not sure why she is in the hospital, she is also not oriented to the year or place, but somehow knows that the current president is Kraig. She has no complaints today other than not having a bowel movement in a few days. She denies any chest pain, shortness of breath, headaches, or lightheadedness. She has been eating and drinking well Exam Vital Signs Vital Sign - Last Date Time Temp Pulse Resp B/P Pulse Ox O2 Delivery O2 Flow Rate FiO2 05/10/16 14:43 72 18 96 Room Air 05/10/16 13:40 36.8 132/66 Intake and Output 05/09/16 05/09/16 05/10/16 Cumulative From/Thru 15:00 23:00 07:00 05/06/16 10:58 - 05/10/16 05:56 Intake Total 560 ml 150 ml 3725 ml Output Total 1400 ml 350 ml 4800 ml Balance -840 ml -200 ml -1075 ml Intake Oral 550 ml 150 ml 3040 ml IV Total 10 ml 685 ml Output Urine Total 1400 ml 350 ml 4800 ml # Voids 22 # Bowel Movements 0 1 1 Exam General: Well-developed elderly female who appears in no acute distress, alert but not oriented to time or place HEENT: Atraumatic, PERRLA, oropharynx moist and nonerythematous Neck: Soft, nontender CV: RRR with soft systolic murmur Respiratory: CTA bilaterally, normal respiratory effort, Abdomen: Soft, obese, nontender, moderate stool masses palpable MSK: Muscle strength grossly intact and equal, bilateral trace pitting pedal edema Neuro: Grossly intact, face symmetric, no focal weakness Skin: Warm, dry, intact Psych: Appropriate mood and affect, pleasant IVs and Medications Medications Reviewed: Medications were reviewed in detail Lab and Diagnostics Result Diagram: 05/10/16 0630 05/10/16 0635 X-Rays, CTs and MRIs IMPRESSION: No change in mild CHF versus atypical pneumonia. No change in small left pleural effusion. Dictated by: Shelley Bahena M.D. on 05/07/2016 at 11:33 12-lead ECG RBBB bradycardic Assessment & Plan 80-year-old female living at [facility] assisted [facility] with history of dementia who presents with altered mental status. #Acute Encephalopathy in a patient with baseline Dementia, POA -likely due to hyponatremia -B12 level pending -Stopping oxybutynin as this can worsen delirium and elderly and the fact that she is having trouble urinating. -Outpatient referral to neurology on discharge -Brain MRI revealed bilateral mastoiditis, but otherwise no other causes for patient's acute altered mental status #Bilateral Mastoiditis This was not noted on CT scan of brain on 05/06. She did get 3 days of IV Rocephin, which we can switch to PO Augmentin to complete a 7 day course. #Weakness, POA -Working on discharge to [facility] 05/10 -PT recommending SNF for further rehab #Vitamin D deficiency Will increase patient's daily vitamin D dosage #Urinary retention stopping oxybutynin 05/09 Huang Cath d/c, voiding trial. May need outpatient Urology follow up #SIADH, POA -due to SSRI -held SSRI --U osm 400s, Serum osm 259 --Robbie 44, -Continue 1.5L fluid restriction #Bradycardia, POA --Resolved -Will resume home medications as appropriate Chronic issues known prior to admission, present on admission History of CVA -starting aspirin 05/09 in addition to statin NIDDM - Low dose correctional scale Dyslipidemia - Resume Statin History of Hydrocephalus Hypertension-Resume home medications as appropriate on discharge Dispo: Likely discharge in 1-2 days pending SNF placement. Pain Evaluation: Adequate Pain Control GI Prophylaxis: Proton Pump Inhibitor VTE Prophylaxis: Sub-Q Enoxaparin VTE Mechanical Devices: Intermittant Pneumatic CD Resuscitation Status: DNR/DNI:Do Not Resuscitate/Intubate Attending Statement The patient was seen and examined independently on 05/10/2016 and case discussed with Dr. Andersen , I agree with the history, exam and plan as outlined in the note above. Jamil Andersen DO May 10, 2016 17:49 Steven Edwards MD May 11, 2016 07:20 Pain Evaluation: Adequate Pain Control GI Prophylaxis: Proton Pump Inhibitor VTE Prophylaxis: Sub-Q Enoxaparin VTE Mechanical Devices: Intermittant Pneumatic CD Resuscitation Status: DNR/DNI:Do Not Resuscitate/Intubate Jamil Andersen DO May 10, 2016 17:49
--- NOTE | 2016-05-10 18:08 | NUR ---
Mobility/pain/mentation Pt getting up OOB with 2 person assist, using BSC and sitting in chair at bedside. Pt did c/o shoulder discomfort with PRN analgesic. Protective drsg intact to coccyx, enc to change position frequently. Nystatin applied to redness in folds. Reina teran'd earlier this shift and pt has been voiding without issue. Pt has not attempted to get OOB ind, requesting help when needed and has not been calling out. Sitter at bedside. Currently resting comfortably, bed in lowest, locked position and call light in reach.
--- NOTE | 2016-05-10 18:18 | NUR ---
spiritual care;routine brief visit. pt agreeable for eucharistic visit
[2016-05-10] MEDS: Amoxicillin-Clav 875-125 mg Tablet PO SCH (20:45)
[2016-05-11] VITALS (9 sets, daily range): BP systolic 111–146; BP diastolic 69–71; PULSE 75–107; RESP 16–22; O2SAT 95–98
--- NOTE | 2016-05-11 02:51 | NUR ---
Confusion At beginning of shift Pt was able to tell me that she was in a hospital but thought it was in [place] and was unsure whey she was in the hospital. Pt did know the year and knew that her daughter was coming down from [place] tomorrow. After day shift sitter left Pt immediately began calling out to staff in the [facility] and placing frequent calls prison guard supervisor light. Pt has made no attempt to exit bed independently and bed alarm had remained on for Pt safety. Pt eventually went to sleep and has been sleeping comfortably since about midnight.
[2016-05-11] MEDS: Albuterol-Ipratropium 3 mL Inhalation Solution NEB SCH ×3 (03:30→13:28)
[2016-05-11] MEDS: Insulin LISPRO 300 Unit/3 mL Inj SUBQ SCH ×2 (07:10→11:49)
[2016-05-11] MEDS: Brimonidine 0.1% 5 mL Ophthalmic Solution BOTH_EYES SCH (08:00)
[2016-05-11] MEDS: Amoxicillin-Clav 875-125 mg Tablet PO SCH (08:00)
[2016-05-11] MEDS: Senna-Docusate 8.6-50 mg Tablet PO PRN (08:02)
[2016-05-11] MEDS: Pantoprazole 20 mg ER24 Tablet PO SCH (08:02)
[2016-05-11] MEDS: Nystatin 100,000 Unit/Gm 15 Gm Powder TOPICAL SCH (08:05)
[2016-05-11] MEDS ORDERED: Albuterol-Ipratropium 3 mL Inhalation Solution NEB ONE (08:15)
--- NOTE | 2016-05-11 10:42 | NUR ---
Spoke with Crescencio at [facility] and they will be able to accept patient today with to follow. They are aware that patient was taken off her sitter at 7PM. Pageadalid CHAVEZ and updated HEALTHCARE ECONOMICS CONSULTANT.
--- NOTE | 2016-05-11 11:32 | NUR ---
Social Work: Continued d/c planning Data: Pt is on day 5 of hospitalization. EMR reviewed. Pt's daughter left a voice mail for BLOOD OR BLOOD BANK TECHNICIAN from 05/10 evening. BLOOD OR BLOOD BANK TECHNICIAN called her back and her , Jan, states she is on a plane to come here currently and that she lands in [place] at 1PM. BLOOD OR BLOOD BANK TECHNICIAN notified pt's daughter that states pt is medically ready for d/c today and that [facility] Kristian Liang has accepted pt. Jan states that he thinks that his will be alright with pt going to any of the SNF's in the area. BLOOD OR BLOOD BANK TECHNICIAN has not yet spoken with pt's daughter regarding this d/c plan and left a message for her on her cell phone, . BLOOD OR BLOOD BANK TECHNICIAN asked for her to call BLOOD OR BLOOD BANK TECHNICIAN by 2pm today regarding this plan. Assessment: Pt from [facility]. Plan: Pt will d/c to SNF, [facility] Kristian Liang has accepted, [facility] Lee Dial, Simran Girard, and Deana have also been referred to. BLOOD OR BLOOD BANK TECHNICIAN will continue to follow and await phone call from pt's daughter. AMRIK Arellano
[2016-05-11] MEDS ORDERED: TRAM50TA2 PO ×2 (14:06)
[2016-05-11] MEDS ORDERED: PANT20TA2 PO (14:06)
[2016-05-11] MEDS ORDERED: AGM875T PO (14:06)
--- NOTE | 2016-05-11 14:12 | PCM.DIMED ---
Brenna Sheldon DO 05/11/16 1411: Discharge Instructions Date of Service May 11, 2016 Dates of Hospitalization May 06, 2016 at 15:26 Discharge Diagnosis Discharge Diagnosis Acute Encephalopathy in a patient with baseline Dementia, POA Bilateral Mastoiditis Weakness, POA Vitamin D deficiency Urinary retention SIADH, POA Bradycardia, POA History of CVA NIDDM Dyslipidemia History of Hydrocephalus Hypertension Diet Heart Healthy, Diabetic Activity Limited until seen by PCP Call your provider Weakness (unilateral), Other (Significant confusion, seizure) Patient Instructions Please follow up with your PCP in 1-2 weeks. Your sodium was very low due your antidepressant, so it has been stopped. Please do not resume Sertraline. Please recheck a BMP with your PCP in the next few weeks. You have an infection called mastoiditis. For this you need to take 6 more days of antibiotic pills. Please complete the entire course. Follow-up Provider: LUX CHAVARRIA MD Follow-up with PCP in: 1 week Steven Edwards MD 05/11/16 1435: Discharge Instructions Attending's Statement The patient was seen and examined on 04/[address] Sheldon , I agree with the discharge instructions as outlined in the note above. The patient was seen and examined on 04/[address] Sheldon , I agree with the discharge instructions as outlined in the note above. The patient was seen and examined on 05/11/[address] Sheldon , I agree with the discharge instructions as outlined in the note above. Brenna Sheldon DO May 11, 2016 14:11 Steven Edwards MD May 11, 2016 14:35
--- NOTE | 2016-05-11 15:03 | NUR ---
Social Work: Discharge Data: Pt is on day 5 of hospitalization. EMR reviewed. D/C orders are in. SAUSAGE WRAPPER spoke with pt's son, Feliciano, regarding d/c plan. Feliciano states he spoke with pt's daughter, Jaquelin, regarding d/c and SNF. Jaquelin asked Feliciano to call SAUSAGE WRAPPER as she continues to be in transit. Feliciano states that they prefer [facility] and that they are agreeable to her going to SNF. UR specialist notified [facility] and set up transportation for 3:30pm. No further d/c planning needs at this time. SAUSAGE WRAPPER will continue to follow if needs arise. SAUSAGE WRAPPER notified pt, RN, UA, and pt's family. Assessment: Pt who is independent at baseline. Plan: Pt will d/c via cabulance at 3:30pm to [facility]. No further d/c planning needs at this time. SAUSAGE WRAPPER will continue to follow if needs arise. AMRIK Arellano
--- NOTE | 2016-05-11 15:19 | NUR ---
Spoke with Crescencio at [facility] and they will be transporting patient at 1530. Updated INSTITUTIONAL RESEARCH DIRECTOR
--- NOTE | 2016-05-11 15:39 | NUR ---
DISCHARGE Pt discharged this afternoon at 1530, off unit in w/c via transportation service to [facility]. Report called to TL ([phone]) shortly after pt dc'd. IV dc'd prior to dc and all belongings returned. Pt alert with confusion, making needs known, vital signs stable and in no apparent distress. Pt denied any pain. Prior to dc, pt voided and had a BM. Packet sent with pt to [facility].
--- NOTE | 2016-05-11 18:44 | PCM.DC.MED ---
Discharge Summary Date of Service May 11, 2016 Dates of Hospitalization Date of Hospital Admission May 06, 2016 at 15:26 Date of Discharge: May 11, 2016 Providers: Admitting Physician: Subhash Wing MD Primary Care Physician: Other,Physician Attending Physician: Subhash Wing MD Diagnosis at Time of Discharge Diagnosis at Time of Discharge Acute Encephalopathy in a patient with baseline Dementia, POA Bilateral Mastoiditis Weakness, POA Vitamin D deficiency Urinary retention SIADH, POA Bradycardia, POA History of CVA NIDDM Dyslipidemia History of Hydrocephalus Hypertension Procedures XRay, CTs & MRIs MRI BRAIN WITHOUT CONTRAST IMPRESSION: 1. No evidence of acute infarct. 2. Moderate to severe cerebral volume loss and moderate chronic white matter small vessel ischemic changes. 3. Bilateral mastoiditis. Dictated by: Cesar Clark M.D. on 05/09/2016 at 20:29 X-RAY CHEST ONE VIEW, PORTABLE IMPRESSION: No change in mild CHF versus atypical pneumonia. No change in small left pleural effusion. Dictated by: Shelley Bahena M.D. on 05/07/2016 at 11:33 ECG 12 Lead RBBB bradycardic Brief History From Dr. Wing's H and P: "80-year-old female resident of assisted living for a month (family had sent her from [facility]), who is noted to have decreased alertness, somnolence and not getting up from bed today and sore throat per assisted living staff. Recent new medication is cephalexin likely for sinus congestion and URI symptoms coughing and sore throat wheezing and new quetiapine since 05/04 and 05/05 started. She denies asthma formally a smoker. Denies CHF denies weight gain denies fever or pain, no prior uti no vaginitis, urinary incontinence no diarrhea In the ER heart rate 3040 sinus, sodium 121. ER doctor was able to speak to one family member who mentioned hydrocephalus history, disoriented to time, aware of person/place per ER provider" Hospital Course 80-year-old female living at [facility] assisted [facility] with history of dementia who presents with altered mental status. #Acute Encephalopathy in a patient with baseline Dementia, POA -likely due to hyponatremia -B12 level normal -Stopping oxybutynin as this can worsen delirium and elderly and the fact that she is having trouble urinating. -Outpatient referral to neurology on discharge -Brain MRI revealed bilateral mastoiditis, but otherwise no other causes for patient's acute altered mental status #Bilateral Mastoiditis This was not noted on CT scan of brain on 05/06. She did get 3 days of IV Rocephin, which we can switch to PO Augmentin to complete a 7 day course. #Weakness, POA -PT recommending SNF for further rehab #Vitamin D deficiency Increased patient's daily vitamin D dosage #Urinary retention stopped oxybutynin 05/09 Huang Cath d/c, voiding trial. #SIADH, POA -due to SSRI -held SSRI -U osm 400s, Serum osm 259 -Robbie 44, -Continue 1.5L fluid restriction #Bradycardia, POA -Resolved -Resumed home medications as appropriate Chronic issues known prior to admission, present on admission History of CVA -starting aspirin 05/09 in addition to statin NIDDM - Low dose correctional scale Dyslipidemia - Resumed Statin History of Hydrocephalus Hypertension-Resumed home medications as appropriate on discharge Exam Vital Signs (Last) Date Time Temp Pulse Resp B/P Pulse Ox O2 Delivery O2 Flow Rate FiO2 05/11/16 13:32 37.2 76 22 146/70 98 Room Air Exam General: Well-developed elderly female who appears in no acute distress, alert but not oriented to time or place HEENT: Atraumatic, PERRLA, oropharynx moist and nonerythematous Neck: Soft, nontender CV: RRR with soft systolic murmur Respiratory: CTA bilaterally, normal respiratory effort, Abdomen: Soft, obese, nontender, moderate stool masses palpable MSK: Muscle strength grossly intact and equal, bilateral trace pitting pedal edema Neuro: Grossly intact, face symmetric, no focal weakness Skin: Warm, dry, intact Psych: Appropriate mood and affect, pleasant Test 05/06/16 11:30 05/06/16 12:23 05/06/16 15:35 05/06/16 19:30 Urine Color Yellow (YELLOW) Urine Appearance Clear (CLEAR,HAZY) Urine pH 6.0 (5.0-8.0) Urine Specific [place] 1.016 (1.003-1.035) Urine Protein 30mg/dL (NEG,TRACE) Urine Glucose (UA) Negativemg/dL (NEGATIVE) Urine Ketones Negativemg/dL (NEGATIVE) Urine Occult Blood Negative (NEGATIVE) Urine Nitrite Negative (NEGATIVE) Urine Bilirubin Negative (NEGATIVE) Urine Urobilinogen Normalmg/dL (NORMAL) Urine Leukocyte Esterase Negative (NEGATIVE) Urine RBC 0-2/hpf (0-2) Urine WBC 0-5/hpf (0-5) Urine Epithelial Cells Few/hpf (NONE-MOD) Urine Crystals Oxalic acid crystals (NONE Urine Bacteria None/hpf (NONE-FEW) Urine Hyaline Casts None/lpf (NONE) Urine Granular Casts None seen (NONE SEEN) Urine Waxy Casts None seen (NONE SEEN) Urine Red Blood Cell Casts None seen (NONE SEEN) Urine White Blood Cell Casts None seen (NONE SEEN) Urine Mucus None seen (None Seen) Urine Trichomonas None seen (NONE SEEN) Urine Yeast None (NONE SEEN) Urinalysis Comment None Urine Culture Reflexed Not indicated Urine Osmolality 414mOs/kH2O (250-1200) Urine Random Sodium 44mEq/L Osmolality 259 (275-300) Lactic Acid Level 0.6mmol/L (0.4-2.0) Total Bilirubin 0.3mg/dL (0.0-1.2) Aspartate Amino Transf (AST/SGOT) 16U/L (0-50) Alanine Aminotransferase (ALT/SGPT) 10U/L (0-32) Alkaline Phosphatase 76U/L (25-165) Total Protein 6.5g/dL (6.4-8.4) Albumin 3.6g/dL (3.4-5.0) Magnesium Level 1.6mg/dL (1.6-2.6) Pro-B-Type Natriuretic Peptide 249.3pg/mL (0-738) Thyroid Stimulating Hormone (TSH) 0.493uIU/mL (0.450-4.500) Free Thyroxine Index 2.0 (1.2-4.9) Thyroxine (T4) 6.9ug/dL (4.5-12.0) Triiodothyronine (T3) Uptake 29% (24-39) Troponin T < 0.010ug/L (0.0-0.011) Test 05/07/16 04:20 05/10/16 06:30 05/10/16 06:35 05/11/16 05:55 Triglycerides Level 127mg/dL (0-149) Cholesterol Level 150mg/dL (100-199) LDL Cholesterol, Calculated 45.600mg/dL (0-99) VLDL Cholesterol 25.400mg/dL HDL Cholesterol 79mg/dL (>39) Cholesterol/HDL Ratio 1.90 (0.0-4.4) Vitamin D 25-Hydroxy 28.0ng/mL (30.0-100.0) White Blood Count 10.0th/mm3 (3.8-10.1) Red Blood Count 4.30mil/mm3 (3.90-5.20) Hemoglobin 12.4g/dL (12.0-15.6) Hematocrit 37.0% (35.0-46.0) Mean Corpuscular Volume 86.0fL (81-100) Mean Corpuscular Hemoglobin 28.8pg (27.0-35.0) Mean Corpuscular Hemoglobin Concent 33.5% (32.0-37.0) Red Cell Distribution Width 13.2% (12.3-15.4) Platelet Count 342bil/L (150-400) Neutrophils (%) (Auto) 60.4% (40-74) Lymphocytes (%) (Auto) 25.1% (14-46) Monocytes (%) (Auto) 10.4% (4-12) Eosinophils (%) (Auto) 3.5% (0-5) Basophils (%) (Auto) 0.3% (0-3) Vitamin B12 Level 1142pg/mL (211-946) Sodium Level 130mEq/L (134-144) Potassium Level 3.7mEq/L (3.5-5.2) Chloride Level 90mEq/L (97-108) Carbon Dioxide Level 26mmol/L (18-29) Blood Urea Nitrogen 7mg/dL (8-27) Creatinine 0.59mg/dL (0.57-1.00) Estimat Glomerular Filtration Rate 140mL/min (>59) Glucose Level 125mg/dL (60-99) Calcium Level 9.1mg/dL (8.5-10.1) Discharge Medications Discharge Medications ([alphagan P 1%]) 1 DROP BOTH_EYES BID (Reported) ([antibiotic oitment ]) 500 GM TOPICAL BID (Reported) Albuterol Sulfate (Ventolin HFA Inhaler) 200 Puff/18 Gm Inhaler 2 PUFF INH Q6hr (Reported) Amlodipine (Amlodipine) 10 Mg Tablet 10 MG PO DAILY (Reported) Amoxicillin/Clav K 875-125 mg (Amoxicillin/Clav K 875-125 mg) 875 Mg Tab 1 TAB PO BID Prescribed by: MABEL BARONE DO Atenolol (Atenolol) 50 Mg Tablet 50 MG PO HS (Reported) Atorvastatin (Lipitor) 10 Mg Tab 5 MG PO HS (Reported) Calcium Carbonate (Calcium Carbonate) 600 Mg Tablet 600 MG PO BID (Reported) Clopidogrel (Clopidogrel) 75 Mg Tablet 75 MG PO DAILY (Reported) Cyanocobalamin (Vitamin B-12) (Vitamin B-12) 1,000 Mcg Tablet 1,000 MCG PO DAILY (Reported) Ferrous Sulfate (Ferrous Sulfate) 325 Mg Tablet 325 MG PO DAILY (Reported) Glipizide (Glipizide) 5 Mg Tablet 2.5 MG PO DAILY (Reported) Hydralazine (Hydralazine) 25 Mg Tablet 25 MG PO TID (Reported) Melatonin (Melatonin) 3 Mg Tablet 6 MG PO HS (Reported) Pantoprazole DR (Pantoprazole DR) 20 Mg Tablet.dr 20 MG PO DAILYAC Prescribed by: MABEL BARONE DO Sennosides (Senna) 8.6 Mg Tablet 8.6 MG PO BID (Reported) Solifenacin Succinate (Vesicare) 10 Mg Tablet 10 MG PO DAILY (Reported) Valsartan (Valsartan) 320 Mg Tablet 320 MG PO DAILY (Reported) Vitamin B Complex/Minerals (Sm Stress Formula+Zinc Tablet) 1 Each Tablet 1 EACH PO DAILY (Reported) As needed Acetaminophen (Acetaminophen) 325 Mg Tablet 650 MG PO Q6hr PRN PRN For Pain ( Reported) Albuterol Sulfate (Ventolin HFA Inhaler) 200 Puff/18 Gm Inhaler 2 PUFF INH Q6hr PRN PRN For Wheezing (Reported) Calcium Carbonate (Calcium Antacid) 215 Mg Calcium (500 Mg) Tab.chew 215 MG PO TID PRN PRN For Dyspepsia or Heartburn (Reported) Clotrimazole/Betameth Dip/Zinc (Dermacinrx Therazole Eric) 1 %-0.05 %-20 % Combo..pkg 135 GM TP BID PRN PRN fungal rash (Reported) Nystatin (Nystatin) 1 Each Powder.ea. 1 EACH MC BID PRN PRN fungal rash ( Reported) Tramadol (Tramadol) 50 Mg Tablet 50 MG PO HS PRN PRN For Pain Prescribed by: MABEL BARONE DO Tramadol (Tramadol) 50 Mg Tablet 50 MG PO Q6 hr. PRN PRN For Pain Prescribed by: MABEL BARONE DO Followup Plan Disposition: SNF Discharge Diet: Heart Healthy, Diabetic Discharge Activity: Limited until seen by PCP Patient Instructions Please follow up with your PCP in 1-2 weeks. Your sodium was very low due your antidepressant, so it has been stopped. Please do not resume Sertraline. Please recheck a BMP with your PCP in the next few weeks. You have an infection called mastoiditis. For this you need to take 6 more days of antibiotic pills. Please complete the entire course. Follow-up Provider: LUX CHAVARRIA MD Follow-up with PCP in: 1 week Time spent 35 minutes Attending Statement The patient was seen and examined independently on 05/11/2016 and case discussed with Dr. Barone , I agree with the discharge summary as outlined in the note above. copies to: LUX CHAVARRIA MD, Viktoriya DO May 11, 2016 18:44 Steven Edwards MD May 11, 2016 20:10
== END 2016-05-11 15:38 | DRG 643 ==
LOC: SED 10:53 → EDBD 10:53 → OSC 15:26 → MPC 05-09 14:18
PROVIDERS: ADMIT Urology; ATTEND Urology
DX: E22.2 Syndrome of inappropriate secretion of antidiuretic hormone (principal); G93.40 Encephalopathy, unspecified; Z87.891 Personal history of nicotine dependence; Z79.84 Long term (current) use of oral hypoglycemic drugs; Z86.73 Personal history of transient ischemic attack (TIA), and cerebral infarction without residual deficits; R00.1 Bradycardia, unspecified; E11.9 Type 2 diabetes mellitus without complications; Z66 Do not resuscitate; R33.9 Retention of urine, unspecified; R53.1 Weakness; E78.5 Hyperlipidemia, unspecified; H70.93 Unspecified mastoiditis, bilateral; E55.9 Vitamin D deficiency, unspecified; F03.90 Unspecified dementia, unspecified severity, without behavioral disturbance, psychotic disturbance, mood disturbance, and anxiety

== ENCOUNTER 2016-06-07 17:37 | Inpatient (IN) | payer MEDICARE, OTHER ==
[~2016-06-07] VITALS: Ht 152.4 cm; Wt 87.2 kg
[~2016-06-07 17:37] MED LIST: ACET325T51 PO; AGM875T PO; ALBU18HF INH; ALPHAGAN P BOTH_EYES; AMLO10TA3 PO; ATEN50TA PO; ATRV10T PO; CALC215T4 PO; CALC600T20 PO; CLOP75TA28 PO; CLOT135C TP; CYAN10008 PO; FERR-83 PO; GLPZ5T PO; HYDR-3939 PO; MELA3TAB35 PO; NYST1POW23 MC; PANT20TA2 PO; SENN-133 PO; SOLI10TA PO; TRAM50TA2 PO; VALS320T12 PO; VITA1TAB27 PO; [UNRECOGNIZED DRUG - REMARK] TOPICAL
[2016-06-07 17:59] VITALS: BP 109/61; PULSE 61; RESP 11; O2SAT 97
--- NOTE | 2016-06-07 17:59 | ED.REPORT ---
HPI-Altered Mental Status Date of Service Jun 07, 2016 ED Provider: Lawrence Smith MD Patient is an 81 year old female with a hx of CVA, DM, and dementia who presents to the ED via EMS after [facility] staff observed an altered mental status. She was trying to feed herself today and could not (she kept missing her mouth). Per staff report, she has been babbling nonsense all day which is abnormal. Per daughter, she is normally disoriented but is much worse the last few days. Associated symptoms include fatigue. Per family she hasn't been vomiting or experiencing any other symptoms. She was put on abx for UTI 6 days ago. Nursing Notes Stated Complaint: CONFUSION Chief Complaint: General Complaint Nursing Notes Reviewed: Yes Allergies: Coded Allergies: VAL Inhibitors (Unverified Allergy, Unknown, 05/06/16) Scheduled Albuterol Sulfate (Ventolin HFA Inhaler) 200 Puff/18 Gm Inhaler 2 PUFF INH Q6H Amlodipine (Amlodipine) 10 Mg Tablet 10 MG PO QAM HOLD FOR SBP < 100 MM HG Atenolol (Atenolol) 25 Mg Tablet 25 MG PO HS HOLD FOR HR < 50 BPM Atorvastatin (Lipitor) 10 Mg Tab 5 MG PO HS Brimonidine Tartrate (Brimonidine 0.2% Oph Soln) 5 Ml Drops 1 DROP BOTH_EYES BID Calcium Carbonate (Calcium Carbonate) 600 Mg Tablet 600 MG PO BID Clopidogrel (Clopidogrel) 75 Mg Tablet 75 MG PO QAM Cyanocobalamin (Vitamin B-12) (Vitamin B-12) 1,000 Mcg Tablet 1,000 MCG PO QAM Ferrous Sulfate (Ferrous Sulfate) 325 Mg Tablet 325 MG PO QAM Hydralazine (Hydralazine) 25 Mg Tablet 25 MG PO TID HOLD FOR SBP < 100 MM HG Lactobacillus Acidophilus (Acidophilus) 1 Each Tablet 2 EACH PO BID X 14 DAYS Levothyroxine (Levothyroxine) 88 Mcg Tablet 88 MCG PO QAM Melatonin (Melatonin) 3 Mg Tablet 3 MG PO HS Multivit with Calcium,Iron,Min (Therapeutic M) 1 Each Tablet 1 EACH PO QAM Omeprazole (Omeprazole) 20 Mg Capsule.dr 20 MG PO QAM Oxybutynin Chloride ER (Oxybutynin Chloride ER) 10 Mg Tab.er.24 10 MG PO QAM Sennosides (Senna) 8.6 Mg Tablet 17.2 MG PO HS Tramadol (Tramadol) 50 Mg Tablet 50 MG PO BID Valsartan (Valsartan) 320 Mg Tablet 320 MG PO QAM HOLD FOR SBP < 100 MM HG Vitamin B Complex/Minerals (Sm Stress Formula+Zinc Tablet) 1 Each Tablet 1 EACH PO QAM Zinc Oxide (Zinc Oxide) 57 Gm Oint...g. 1 APPLIC TP TID TO BUTTOCKS TO PREVENT PRESSURE ULCER Scheduled PRN Acetaminophen (Acetaminophen) 325 Mg Tablet 650 MG PO Q4H PRN PRN For Pain Calcium Carbonate (Tums) 500 Mg Tab.chew 500 MG PO TID PRN PRN For Dyspepsia or Heartburn Magnesium Hydroxide (Milk of Magnesia) 400 Mg/5 Ml Oral.susp 30 ML PO DAILY PRN PRN For Constipation 1ST LINE IF NO BOWEL MOVEMENT IN 3 DAYS Tramadol (Tramadol) 50 Mg Tablet 50 MG PO Q6H PRN PRN For Pain General Time Seen by MD: 17:56 Chief Complaint Not acting right Hx Obtained From: Daughter, Geodetic Surveyor Technologist Arrived By: Walk-in Sudden in Onset?: Yes Onset Occurred: 3 days ago Symptom Duration: Since onset Past Medical History Past Medical History Notes: CODE STATUS: DNR with comfort care Past Medical History Cerebrovascular disease NIDDM Daughter says she has had hydrocephalus Spinal stenosis Reports: COPD, Diabetes mellitus, Hypertension, Stroke Past Surgical History R partial knee replacement Back fusion Reports: Cataract surgery Smoking History Former Smoker Social History Other Social History: Good social support, Lives in [facility] Review of Systems Unable to Obtain ROS Patient condition Physical Exam Initial Vital Signs Vital Signs (First) Date Time Temp Pulse Resp B/P Pulse Ox O2 Delivery O2 Flow Rate FiO2 06/07/16 17:59 36.0 61 11 109/61 97 Nasal Cannula 2 Initial VS: Reviewed Skin: Warm, Dry General/Constitutional: Well developed Muscle tone decreased throughout catheter draining clear urine Head / Eyes: Normocephalic, PERRL No facial asymmetry Neck: Atraumatic Neck stiffness Respiratory / Chest: Breath sounds NL, Breath sounds = bilat lungs clear anteriorly Heart Sounds / Murmur: Positive: Systolic murmur present.. Distant heart tones Mental Status: Positive: Somnolent Mumbles incoherently Abdomen: Non-tender High pitched bowel sounds Distended Ankle / Foot: Atraumatic Toes upgoing on R and downgoing on L Interpretation & Diagnostics Lab Results Interpretation Result Diagram: 06/07/16 1836 06/07/16 1836 Test 06/07/16 17:54 06/07/16 18:36 Urine Color Yellow (YELLOW) Urine Appearance Hazy (CLEAR,HAZY) Urine pH 6.0 (5.0-8.0) Urine Specific Herrick 1.030 (1.003-1.035) Urine Protein Tracemg/dL (NEG,TRACE) Urine Glucose (UA) Negativemg/dL (NEGATIVE) Urine Ketones Negativemg/dL (NEGATIVE) Urine Occult Blood Negative (NEGATIVE) Urine Nitrite Negative (NEGATIVE) Urine Bilirubin Negative (NEGATIVE) Urine Urobilinogen Normalmg/dL (NORMAL) Urine Leukocyte Esterase Negative (NEGATIVE) Urine RBC 0-2/hpf (0-2) Urine WBC 0-5/hpf (0-5) Urine Epithelial Cells Few/hpf (NONE-MOD) Urine Crystals None seen (NONE SEEN) Urine Bacteria Few/hpf (NONE-FEW) Urine Hyaline Casts Occasional/lpf (NONE) Urine Granular Casts None seen (NONE SEEN) Urine Waxy Casts None seen (NONE SEEN) Urine Red Blood Cell Casts None seen (NONE SEEN) Urine White Blood Cell Casts None seen (NONE SEEN) Urine Mucus None seen (None Seen) Urine Trichomonas None seen (NONE SEEN) Urine Yeast None (NONE SEEN) Urinalysis Comment None Urine Culture Reflexed Not indicated Hold Urine Received (Received) White Blood Count 8.9th/mm3 (3.8-10.1) Red Blood Count 4.28mil/mm3 (3.90-5.20) Hemoglobin 12.2g/dL (12.0-15.6) Hematocrit 36.3% (35.0-46.0) Mean Corpuscular Volume 84.8fL (81-100) Mean Corpuscular Hemoglobin 28.5pg (27.0-35.0) Mean Corpuscular Hemoglobin Concent 33.6% (32.0-37.0) Red Cell Distribution Width 13.6% (12.3-15.4) Platelet Count 332bil/L (150-400) Neutrophils (%) (Auto) 56.0% (40-74) Lymphocytes (%) (Auto) 24.9% (14-46) Monocytes (%) (Auto) 12.2% (4-12) Eosinophils (%) (Auto) 6.0% (0-5) Basophils (%) (Auto) 0.7% (0-3) Sodium Level 124mEq/L (134-144) Potassium Level 5.1mEq/L (3.5-5.2) Chloride Level 86mEq/L (97-108) Carbon Dioxide Level 23mmol/L (18-29) Blood Urea Nitrogen 21mg/dL (8-27) Creatinine 1.48mg/dL (0.57-1.00) Estimat Glomerular Filtration Rate 48mL/min (>59) Glucose Level 90mg/dL (60-99) Lactic Acid Level 0.7mmol/L (0.4-2.0) Calcium Level 10.2mg/dL (8.5-10.1) Total Bilirubin 0.3mg/dL (0.0-1.2) Aspartate Amino Transf (AST/SGOT) 26U/L (0-50) Alanine Aminotransferase (ALT/SGPT) 13U/L (0-32) Alkaline Phosphatase 75U/L (25-165) Ammonia 42ug/dL (18-53) Troponin T 0.020ug/L (0.0-0.011) Total Protein 7.7g/dL (6.4-8.4) Albumin 4.6g/dL (3.4-5.0) Lab Results Interpretation: Utox negative ECG Interpretation ECG Interpretation: Sinus rate 59 RBBB Time: 19:26 Interpreted by: ED physician X-Ray Chest Interpretation Chest Xray Interpretation: IMPRESSION: Cardiomegaly as before, without acute cardiopulmonary disease. Dictated by: Freddy Jensen M.D. on 06/07/2016 at 18:49 Approved by: Freddy Jensen M.D. on 06/07/2016 at 18:50 View: Portable, 1 view Interpretation / Wet Read by: Interpret - Radiologist CT Head Interpretation IMPRESSION: 1. No acute intracranial abnormalities. 2. Background periventricular and deep white matter chronic small vessel ischemic changes. 3. Scattered bilateral mastoid air cell fluid persists, suggesting mastoiditis. Dictated by: Freddy Jensen M.D. on 06/07/2016 at 20:15 Approved by: Freddy Jensen M.D. on 06/07/2016 at 20:19 Study: Head CT no contrast Interpretation / Wet Read by: Interpret - Radiologist CT Abd / Pelvis Interpretation IMPRESSION: 1. No evidence for small bowel obstruction. Scattered stool throughout the colon. 2. Mild cardiomegaly, with small circumferential pericardial effusion. 3. Small retrocardiac hiatal hernia. Dictated by: Freddy Jensen M.D. on 06/07/2016 at 20:20 Approved by: Freddy Jensen M.D. on 06/07/2016 at 20:28 Study type: Abdominal CT no contrast Interpretation / Wet Read by: Interpret - Radiologist Re-Eval/Medical Decision Med Decision/Clinical Course An 81-year-old female with an underlying dementia and altered mental status. According to her daughter, her present mental status is clear and precipitous decline from baseline. I do not a recent admission for encephalopathy. I had initial concerns about a possible infection including meningitis or perhaps a bowel obstruction given physical findings. Given her lack of fever or leukocytosis pitting meningitis is highly unlikely. Labs and imaging did not suggest acute urinary infection pneumonia or intra-abdominal process. A sodium 124 is noted. Given her altered mental status with this, she was given a single 100 mL bolus of hypertonic saline. She did also receive a liter of normal saline as a bolus prior to this when sepsis with a concern. She is hemodynamically stable her daughter has confirmed DO NOT RESUSCITATE status and we discussed goals of care, at this point the daughter's primary concern was keeping mom comfortable but is interested in treating reversible conditions that do not require invasive procedures. Ultracet been obtained, patient is admitted to the hospitalist service. Re-Evaluation/Progress : Time of Eval: 21:22 )( Re-Eval Neurologic Exam: Somnolent Re-Evaluation/Progress Note: Discussed plan for admission with pt. family. Family understands and agrees with plan. All questions addressed at this time. Consultation : Referral / Consult Name: Ray Morgan MD Consulted With: Hospitalist Call Returned at: 21:26 Sexual Assault Nurse: Will see patient, Agrees with eval, Agrees with plan, Accepts admit Note: Discussed pt. case. Accepts admit Counseled Regarding: Diagnosis, Lab results, Need for admission Patient Discharge & Departure Impression: Primary Impression: Hyponatremia Additional Impression: Altered mental status Altered mental status type: unspecified Qualified Code: R41.82 - Altered mental status, unspecified Disposition: ADMITTED TO HOSPITAL Referrals: OTHER,PHYSICIAN (PCP) Scribe Attestation Portions of this note were transcribed by Patt Bowles. I, Dr. Smith personally performed the history, physical exam and medical decision-making; I reviewed and confirmed the accuracy of the information in the transcribed note. Signed by: Patt Bowles 06/07/2016, 2129 Lawrence Smith MD Jun 07, 2016 17:59 PATT BOWLES Jun 07, 2016 18:06
[2016-06-07] MEDS ORDERED: 0.9% Sodium Chloride 1,000 ML IV ONE (18:20)
[2016-06-07 18:47] LABS: COLOR,URINE YELLOW (YELLOW)
[2016-06-07 18:48] LABS: BASOPHILS % (AUTO) 0.7 % (0-3); MONOCYTES % (AUTO) 12.2 % (4-12); Mean Corpuscular Hemoglobin 28.5 pg (27.0-35.0); Mean Corpuscular Volume 84.8 fL (81-100); Platelet Count 332 bil/L (150-400)
[2016-06-07 18:48] LABS: APPEARANCE,URINE HAZY (CLEAR,HAZY); OCCULT BLOOD,URINE NEGATIVE (NEGATIVE); UROBILINOGEN,URINE NORMAL (NORMAL)
--- NOTE | 2016-06-07 18:56 | DRSVH ---
PROCEDURE: X-RAY CHEST ONE VIEW, PORTABLE ([id number]) INDICATIONS: 81 year-old female with altered mental status. TECHNIQUE: One view of the chest was acquired. COMPARISON: [facility], CR, XR CHEST 1VW (PORTABLE), 05/07/2016, 10:33. [facility], CR, XR CHEST 1VW (PORTABLE), 05/06/2016, 12:02. FINDINGS: Surgical changes and devices: None. Lungs and pleura: No pleural effusions or pneumothorax. Lungs are clear. Mediastinum: Mediastinal contours appear normal. There is moderate cardiomegaly. There is aortic at herosclerosis. Bones and chest wall: No suspicious bony lesions. Overlying soft tissues appear unremarkable. IMPRESSION: Cardiomegaly as before, without acute cardiopulmonary disease. Dictated by: Freddy Jensen M.D. on 06/07/2016 at 18:49 Approved by: Freddy Jensen M.D. on 06/07/2016 at 18:50
[2016-06-07 19:19] LABS: TROPONIN T 0.02 ug/L (0.0-0.011)
[2016-06-07] MEDS ORDERED: 3% Sodium Chloride Inj 100 ML IV ONE (20:00)
--- NOTE | 2016-06-07 20:26 | DRSVH ---
PROCEDURE: CT BRAIN WITHOUT CONTRAST ([id number]) INDICATIONS: 81 year-old female with altered mental status. TECHNIQUE: Noncontrast 4.5 mm thick angled axial sections acquired from the foramen magnum to the vertex, with c oronal reformats. COMPARISON: [facility], MR, MR BRAIN WO CON, 05/09/2016, 19:56. [facility], CT, CT BRAIN WO CON, 05/06/2016, 13:54. FINDINGS: Image quality: Excellent. CSF spaces: Basal cisterns are patent. No extra-axial fluid collections. The ventricles are symmet emma in size and shape. Brain: No intracranial bleeds or masses. There is cerebral volume loss for age, with resultant vent ricular and sulcal prominence. There are widespread periventricular and deep white matter chronic sm all vessel ischemic changes. There is intracranial internal carotid artery atherosclerosis. Skull and face: Calvarium and visualized facial bones appear intact, without suspicious lesions. Sinuses: Visualized sinuses are clear. Scattered bilateral mastoid air cell fluid persists. IMPRESSION: 1. No acute intracranial abnormalities. 2. Background periventricular and deep white matter chronic small vessel ischemic changes. 3. Scattered bilateral mastoid air cell fluid persists, suggesting mastoiditis. Dictated by: Freddy Jensen M.D. on 06/07/2016 at 20:15 Approved by: Freddy Jensne M.D. on 06/07/2016 at 20:19
--- NOTE | 2016-06-07 20:35 | DRSVH ---
PROCEDURE: CT ABDOMEN AND PELVIS WITHOUT CONTRAST ([id number]) INDICATIONS: 81 year-old female with bowel obstruction. TECHNIQUE: Intravenous contrast was not administered due to patient's low GFR level. Noncontrast 5 mm thick sect ions acquired from the diaphragms to the symphysis. 5 mm coronal and sagittal reformats were then pe rformed. For radiation dose reduction, the following was used: automated exposure control, adjustme nt of mA and/or kV according to patient size. COMPARISON: None. FINDINGS: Image quality: Excellent. ABDOMEN: Lung bases: Lung bases are clear. There is mild cardiomegaly, with small circumferential pericardial effusion. There is small retrocardiac hiatal hernia. Solid organs: Liver and spleen are normal in size. Gallbladder wall thickness is normal. Pancreas is normal in contours. No adrenal nodules. Kidneys are normal in size, without hydronephrosis or ne phrolithiasis. Peritoneum and bowel: Unenhanced bowel loops demonstrate normal wall thickness and caliber. The josias endix appears normal in caliber. No free fluid or air. Nodes and vessels: No retroperitoneal or mesenteric adenopathy by size criteria. Aorta and inferior vena cava are normal in caliber, with diffuse aortoiliac atherosclerosis. Miscellaneous: No ventral hernias. PELVIS: Genitourinary: The bladder is decompressed by a Huang catheter. Uterus is normal in size. Postmenopau joycelyn ovaries are not well seen. Miscellaneous: No inguinal hernias or adenopathy. Bones: No suspicious bony lesions. No vertebral body compression fractures. There is multilevel laurita mbar spine disc degeneration with mild scoliosis, status post lower lumbar spine discectomy and poste rior fixation. IMPRESSION: 1. No evidence for small bowel obstruction. Scattered stool throughout the colon. 2. Mild cardiomegaly, with small circumferential pericardial effusion. 3. Small retrocardiac hiatal hernia. Dictated by: Freddy Jensen M.D. on 06/07/2016 at 20:20 Approved by: Freddy Jensen M.D. on 06/07/2016 at 20:28
[2016-06-07 21:36] VITALS: BP 104/55; PULSE 69; RESP 21; O2SAT 87
[2016-06-07] MEDS ORDERED: Ondansetron 2 mg/mL 2 mL Inj IVPUSH PRN (21:45)
[2016-06-07] MEDS ORDERED: Polyethylene Glycol (PEG) 17 Gm Powder PO PRN (21:45)
[2016-06-07] MEDS ORDERED: Alum-Mag Hydrox-Simeth 30 mL Suspension PO PRN (21:45)
[2016-06-07] MEDS ORDERED: ATEN25TA PO (22:14)
[2016-06-07] MEDS ORDERED: CITA10TA9 PO (22:16)
[2016-06-07] MEDS ORDERED: OMEP20CA11 PO (22:20)
[2016-06-07] MEDS ORDERED: OXYB10TA PO (22:20)
[2016-06-07] MEDS ORDERED: MULT-140 PO (22:21)
--- NOTE | 2016-06-07 22:24 | PCM.HPMED ---
Subjective Date of Service Jun 07, 2016 Primary Provider: Admitting Physician: Primary Care Physician: Other,Physician Attending Physician: Admit Status: Full Admit Chief Complaint: Altered mental status History of Present Illness: Ms. Murray is an 81-year-old woman recently located to [facility] from [place] , with a history of cerebrovascular disease, diabetes, suspected SIADH, bradycardia, and dementia, that presented to [facility] via EMS from [facility] with reports of increased confusion, nonsensical conversations, and decrease in ability to perform ADLs. She was admitted for evaluation and treatment of acute encephalopathy and hyponatremia. Hospital day 1 Multiple family members are present at time of evaluation, and provide much history of the patient, as the patient is confused to location and date. The patient is able to converse at a minimal level, and is able to appropriately respond when questioned about presence of pain, nausea, vomiting, abdominal pain , all of which, she denies. She also denies any chest pain or discomfort. She does note that her legs are cramping, and during this evaluation, her legs appear restless. Family members present sure that the patient has been increasingly confused over the most recent 2-3 days, above her baseline dementia status. They note that she has been babbling nonsense when asked questions, but does intermittently respond appropriately to some questions. Patient currently reports the date as in the "1800" and believes her current location is in her apartment. The patient is unable to recall the events leading to this admission. Family shared that earlier today, she was unable to feed herself, a task she was able to perform days prior to admission. The family shares that they were quite concerned with her condition at time of arrival to the emergency department, but do note that she has mildly improved since arrival. The family states they are aware of her recent medication change , a recent addition of an SSRI, but they are unable to name the medication. They believe the medication was started approximately a week or 2 ago. They share that this presentation is similar to her presentation approximately one month ago for similar symptoms in addition to the finding of hyponatremia. Family denies any observance of increased cough, productive cough, complaints of fever, chills, nausea, vomiting, or abdominal pain and days leading to admission. They do note that the leg cramping is new for the patient over the recent few days. She was recently admitted from May 06 to 05/11/2016 for acute encephalopathy suspected to be secondary to hyponatremia, in addition to bilateral mastoiditis which she completed a seven-day course of antibiotics. At that admission, SSRIs were discontinued, oxybutynin was also stopped. She was placed on a fluid restriction. [facility], most recent documentation 05/12/2016. At that visit, it appears there were no medications added, however, the addition of tramadol was added . This is not an SSRI as the family has suspected. Are no SSRIs on her current medication list that we were able to obtain from [facility]. In the ED, patient was notably confused, unable to correctly identify the date or location, but was able to appropriately answer some questions, but not all. T 36.0, pulse 61, respiratory rate 11, blood pressure 109/61, 97% on 2 L nasal cannula; previous reading of 87% on room air. Family states she does wear oxygen at [facility]. Initial labs revealed WBC 8.9 with 6.0 eos, hemoglobin 12.2, platelets 332; sodium 124, potassium 5.1, creatinine 1.48, lactic acid 0.7 , ammonia 42, troponin 0.020. Blood cultures were obtained. Imaging included chest x-ray which revealed cardiomegaly which appeared stable, without acute cardiopulmonary disease; brain CT did not reveal any acute intracranial abnormalities, but periventricular deep white matter chronic small vessel ischemic changes were noted in addition to scattered bilateral mastoid fluid persistence suggestive of mastoiditis; CT abdomen and pelvis without contrast revealed a normal-appearing liver, spleen, and gallbladder, kidneys were normal in size without hydronephrosis or nephrolithiasis, there was no evidence for small bowel obstruction or other acute abdominal findings. Initial therapies in the emergency department included 1 L normal saline in addition to an NS 100 maintenance. She was seen in stable condition in the emergency department, awaiting transfer to hospital floor. Review of Systems: Complete ROS obtained; pertinent positives and negatives as noted above Allergies Coded Allergies: VAL Inhibitors (Unverified Allergy, Unknown, 05/06/16) Uncoded Allergies: CELINA (Allergy, Unknown, 06/07/16) Home Medications Active medications found in [facility]: Tramadol 50 mg 2 tablets by oral route 2 times daily, then 1 tablet every 6 hours as needed Eyedrops Vitamin E Vesicare 10 mg tablets Glipizide 2.5 mg daily Folic acid 1 mg daily Ferrous sulfate 325 mg daily Calcium plus vitamin D daily Atenolol 50 mg daily Amlodipine 10 mg daily Vitamin B12 daily Albuterol as needed Senokot twice daily Plavix 75 mg daily Pantoprazole 20 mg daily Melatonin 6 mg nightly Hydralazine 25 mg 3 times daily Atorvastatin 5 mg daily Recent completion of Augmentin; not a current medication -- ADDITIONAL: Pharmacy contacted, Celexa and Bactrim were found to be active medications PMH Dementia Dyslipidemia Type II diabetes mellitus without complication and without long-term current insulin use Hydrocephalus Preserved EF heart failure Hypertension Multilevel lumbar spine disc degeneration with mild scoliosis status post lower lumbar spine discectomy and posterior fixation Bradycardia CVA Suspected SIADH Urinary retention Surgical History Lower lumbar spine discectomy and posterior fixation secondary to multilevel lumbar spine disc degeneration with mild scoliosis Echocardiogram 04/2016: EF 65-70, severe dilation left atrium, moderate mitral stenosis; difficult study Family History Father and patient secondary to unknown causes, children are unable to provide any additional information other than her own, children report hypertension. Social History Hx Alcohol Use: No Hx Substance Use: No Hx Tobacco Use: Yes Smoking Status: Former Smoker Living Arrangement: [facility] ([facility]) Exam Vital Signs Vital Sign - Last Date Time Temp Pulse Resp B/P Pulse Ox O2 Delivery O2 Flow Rate FiO2 06/07/16 22:03 36.4 67 20 107/58 97 Room Air 06/07/16 17:59 2 Exam General: Obese female lying supine in bed in no acute distress; interactive, but inappropriate responses HEENT: Atraumatic, sclera anicteric, mucous membranes moist, nasal cannula in place Cardiac: Regular rate and rhythm at time of examination without any appreciated murmurs Respiratory: Poor inspiratory effort, no wheeze or rhonchi appreciated at time of examination Abdomen: Obese, appears to be nontender, nondistended, soft MSK: Patient is able to move 4 out of 4 extremities against gravity, although not on command Extremities: Bilateral lower extremity venous stasis changes noted with, small scabbed lesion of left lower extremity on tibial ridge approximately 6 cm above ankle that appears healed Skin: Warm and dry : Huang was in place Neuro: Difficult to assess as patient does not follow commands well; no facial asymmetry is appreciated; patient initially answers question appropriately but then proceeds to babble nonsensically Psych: Interactive, but unable to assess secondary to confusion; not oriented, she states the year as first 1800, and then 1900, and she believes she is currently in her apartment. Lab and Diagnostics Result Diagram: 06/07/16183506/07/161835 Assessment & Plan Ms. Murray is an 81-year-old woman recently located to [facility] from [place] , with a history of cerebrovascular disease, diabetes, suspected SIADH, bradycardia, and dementia, that presented to [facility] via EMS from [facility] with reports of increased confusion, nonsensical conversations, and decrease in ability to perform ADLs. She was admitted for evaluation and treatment of acute encephalopathy and hyponatremia. Hospital day 1 Encephalopathy, acute, present on admission. Ongoing - Patient was unable to answer most questions at time of admission - DDx: Recent addition of tramadol, underlying infection, hyponatremia, other electrolyte abnormalities, deficiencies - April 2016: E 12 1142, vitamin D 28, TSH and free T4 within reference range; ammonia on this admission 42 - UTox in ED negative; UA negative for leukocyte esterase, nitrates, bacteria - Treat underlying cause - NPO - Speech eval - Blood cultures obtained; PCT added - Avoid narcotic medications; avoid SSRIs (pharmacy states pt was recently started on Celexa and bactrim, which were not found in [facility]) - Promote healthy sleep-wake cycle; family reports that jail facility stated patient had been awake at night - Abx: Unasyn secondary to suspected ongoing bilateral mastoiditis evidenced on CT Acute kidney injury, present on admission. Active - On admit: Creatinine 1.48; previous values April 2016 were 0.59, 0.79, 0.66 - CT abdomen on admission did not reveal any abnormalities - Likely secondary to poor oral intake and recent fluid restrictions; no diuretics found on medication list through [facility]; Pharmacy states recent addition of Bactrim to med list - Gentle hydration at this time - Avoid nephrotoxic medications, including bactrim - Continue to monitor Elevated troponin of undetermined significance, likely acute, present on admission. Monitor - On admit: Troponin 0.20 - EKG: Normal sinus rhythm with rate 59, right bundle branch block without any acute ST/T changes; QTc 504 - Trend Hyponatremia, acute on chronic, present on admission. Under evaluation - On admit: Sodium 124; sodium levels from April include 130 day of discharge, previous values 127, 128, 124, 125; lowest recorded 121 day of April admission - Previous admission in April 2016: Suspected SIADH secondary to SSRI - Fluid restriction - Gentle hydration NS for maintenance as patient is NPO - Trend sodium levels - Random urine sodium and osmolality ordered Bilateral mastoiditis, chronic, present on admission. Ongoing - This was seen previous admission; pt recv'd 7d course abx - Per med rec, bactrim recently added to medication list; unsure Dx/indication - Not continuing bactrim at this time secondary to KARUNA - Consider high resolution bone scan; reassess patient as altered mental status subsides to assess for symptoms - Empiric antibiotics initiated: Unasyn 3 g every 6 hours - Fungal studies ordered, as patient is a diabetic Dementia, chronic. Presumed stable - No medications on file through [facility] - Current altered mental status, but family reports that this is not her baseline Non-insulin using diabetes mellitus, chronic. Presumed stable - No A1c on file - A1c in a.m. Hypertension, chronic. Presumed stable - Resumed home medications: Atenolol, amlodipine, hydralazine Hydrocephalus, chronic. Presumed stable - CT brain completed on admission, no acute intracranial abnormalities - Monitor HFpEF, chronic. Presumed stable - Echo 04/2016: EF 65-70 with moderate mitral stenosis; noted to be a difficult study - Continue home medications as noted above Dyslipidemia, chronic. Presumed stable - Resumed home statin - Recent lipid profile April 2016: Total cholesterol 150, LDL 45, HDL 79, triglycerides 127 Chronic pain. Presumed stable - Physical therapy evaluation - Heat packs as needed - Avoidance of narcotics, acetaminophen only at this time Goals of care - POLST was provided by family: DNR/DNI - Photo copy of advance directives provided PRN: Fever/bowel/nausea/pain DVT: Heparin q8 GI: PPI Diet: Nothing by mouth CODE STATUS: DNR/DNI Patient admitted under inpatient status with expected length of stay > 2 midnights for severity of present symptoms, complexities of treatment plan and risk for adverse event . Pain Evaluation: Adequate Pain Control GI Prophylaxis: Proton Pump Inhibitor VTE Prophylaxis: Sub-Q Heparin (Unfractionated) Resuscitation Status: DNR/DNI:Do Not Resuscitate/Intubate Attending Statement The patient was seen and examined together with Dr. Yougn on 06/07 and I agree with the history, exam and plan as outlined in the note above. Karina Young DO Jun 07, 2016 22:24 Ray Morgan MD Jun 08, 2016 00:52
[2016-06-07] MEDS ORDERED: LACT1TAB9 PO (22:29)
[2016-06-07] MEDS ORDERED: SULF1TAB7 PO (22:31)
[2016-06-07] MEDS ORDERED: BRIM5DRO9 BOTH_EYES (22:32)
[2016-06-07] MEDS ORDERED: TRAM50TA2 PO ×2 (22:33→22:42)
[2016-06-07] MEDS ORDERED: ZINC57OI TP (22:35)
[2016-06-07] MEDS ORDERED: CALC500T9 PO (22:38)
[2016-06-07] MEDS ORDERED: MAGN400O4 PO (22:40)
[2016-06-07] MEDS ORDERED: LEVO88TA4 PO (22:47)
[2016-06-07] MEDS ORDERED: Glucose 40% Oral Gel 15 Gm Tube PO PRN (22:50)
[2016-06-07] MEDS ORDERED: Albuterol-Ipratropium 3 mL Inhalation Solution NEB PRN (22:50)
[2016-06-07] MEDS ORDERED: Albuterol 2.5 mg/3 mL Inhalation Solution NEB PRN (22:50)
[2016-06-07] MEDS ORDERED: Acetaminophen IV 1,000 MG in IV Premix 1 EACH IV PRN (22:50)
[2016-06-07] MEDS ORDERED: 0.9% Sodium Chloride 1,000 ML IV SCH (22:50)
[2016-06-07 22:56] VITALS: BP 116/65; PULSE 60; RESP 22; O2SAT 96
[2016-06-07 23:44] VITALS: PULSE 60
[2016-06-07] MEDS: Heparin 5,000 Unit/mL Inj SUBQ SCH (23:55)
[2016-06-08] VITALS (10 sets, daily range): BP systolic 123–165; BP diastolic 52–75; PULSE 50–66; RESP 10–21; O2SAT 92–98
--- NOTE | 2016-06-08 01:34 | NUR ---
admit note pt to floor used slider board to get pt to bed, pt with 1L NC and hunt in place, pt denies any pain, has a mumbled speech that can be hard to understand, family assisting with admit, NS at 80cc/hr running, pt forgetful, bed alarm on, allergy band in place, demonstrated call light and bed to pt. pt denies any nausea, family worried about pt being constipated pt had CT abd and didn't show that. pt NPO. speech eval ordered for morning. tele SR with TERESITA
[2016-06-08] MEDS: Ampicillin-Sulbactam Inj 3,000 MG in 0.9% Sodium Chloride 100 ML IV SCH ×4 (01:53→19:57)
[2016-06-08 02:36] LABS: BASOPHILS % (AUTO) 0.9 % (0-3); EOSINOPHILS % (AUTO) 5.5 % (0-5); Mean Corpuscular Hemoglobin 28.3 pg (27.0-35.0); Mean Corpuscular Volume 85.6 fL (81-100); NEUTROPHILS % (AUTO) 54.7 % (40-74); Platelet Count 297 bil/L (150-400)
[2016-06-08 02:53] LABS: OSMOLALITY, URINE 526 mOs/kH2O (250-1200)
[2016-06-08 02:53] LABS: Magnesium 1.7 mg/dL (1.6-2.6); Phosphorus 3.2 mg/dL (2.5-4.9)
--- NOTE | 2016-06-08 04:49 | NUR ---
confusion pt becoming restless and confused pulled hunt cath out, trying to pull IVS out and tele box off. 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 called MD received order to place pt in soft wrist restraints to maintain lines. pt resting comfortably
[2016-06-08] MEDS ORDERED: Pantoprazole 20 mg ER24 Tablet PO SCH (07:30)
[2016-06-08] MEDS: Insulin LISPRO 300 Unit/3 mL Inj SUBQ SCH ×4 (08:00→22:00)
--- NOTE | 2016-06-08 08:10 | DRSVH ---
PROCEDURE: X-RAY CHEST ONE VIEW, PORTABLE ([id number]) INDICATIONS: AMS; eval infxn TECHNIQUE: One view of the chest was acquired. COMPARISON: [facility], CR, XR CHEST 1VW (PORTABLE), 06/07/2016, 18:29. FINDINGS: Surgical changes and devices: None. Lungs and pleura: No pleural effusions or pneumothorax. Lungs are clear. Interstitium is prominent in early developing edema cannot be excluded. Mediastinum: Mediastinal contours appear normal. Heart size is enlarged. Bones and chest wall: No suspicious bony lesions. Overlying soft tissues appear unremarkable. IMPRESSION: Cardiomegaly redemonstrated and mild interstitial prominence. Mild early developing pulm onary edema cannot be excluded. Dictated by: Evans SHARIF Interpreted: Leanna Mast MD on 06/08/2016 at 8:09 Transcribed by: JESSI on 06/08/2016 at 8:10 Approved by: Leanna Mast M.D. on 06/10/2016 at 9:02
--- NOTE | 2016-06-08 09:45 | ABG ---
DateTimeAnalyzed 09:39:00 -_ pH ____7.406 - 7.350 7.450 pCO2 ___41.6__ -mmHg 35.0 45.0 pO2 ___68.5__ -mmHg 69.0 116 HCO3- ___25.6__ -mmol/L 22.0 26.0 ABE ____1.3__ -mmol/L -2.0 2.0 tHb ___11.2__ -g/dL O2Hb ___92.8__ -% COHb ____0.8__ -% MetHb ____1.1__ -% sO2 ___94.6__ -% FIO2 ___21.0__ -% Drawn By NB - Date/Time Notified____ 09:45:00 -_ Spontaneous_RR ___11.0__ -b/min Notified By NB - Notified Whom DR SEVERIANO - B 759 -mmHg tO2 ___14.7__ -Vol% Cole test N/A -
[2016-06-08] MEDS: Heparin 5,000 Unit/mL Inj SUBQ SCH ×2 (10:08→16:25)
--- NOTE | 2016-06-08 10:42 | NUR ---
Blood Sugar Patient NPO pending swallow eval. Patients somnolent and not appropriate for eval at this time. BG 67 this AM, dextrose given per protocol. Bloood glucose came up to 122 but is down in the 70s at this time. MD notified, ordered BG to be checked every hour, no further interventions ordered. Nurse to notify him if she drops below 60.
--- NOTE | 2016-06-08 11:00 | PCM.PNMED ---
Subjective Date of Service Jun 08, 2016 Subjective Overnight: Telemetry showed sinus rhythm in the 50s and 60s throughout the night with what looks like a first-degree block. Normal saline at 80 mL/h running throughout the night. Became agitated and confused during the evening, pulling her Huang catheter out with bladder still inflated attempted to pull out her IV lines and telemetry box off. She did verbalize knowledge of where she was in the hospital but became angry and tried to physically strike out to nursing staff required soft restraints to be placed. Today: Patient arousable to voice though somewhat somnolent. This is apparently her baseline as she stays awake throughout the evening at her SNF and will sleep throughout the day. She does not verbalize coherent answers to questions. At time of exam patient was on capnography via nasal cannula which showed a respiratory rate of 4-6 and low CO2's. No calculated respiratory rate was between 8 and 12. ABGs ordered which showed normal CO2, bicarbonate and pH. Exam Vital Signs Vital Sign - Last Date Time Temp Pulse Resp B/P Pulse Ox O2 Delivery O2 Flow Rate FiO2 06/08/16 09:17 10 98 Nasal Cannula 1.00 06/08/16 08:27 36.4 60 139/64 Intake and Output 06/07/16 06/07/16 06/08/16 Cumulative From/Thru 14:59 22:59 06:59 06/07/16 17:59 - 06/08/16 06:24 Intake Total 1000 ml 590 ml 1590 ml Output Total 900 ml 900 ml Balance 1000 ml -310 ml 690 ml Intake IV Total 1000 ml 590 ml 1590 ml Output Urine Total 900 ml 900 ml Exam General: Obese female lying supine in bed in no acute distress. Arousable to voice though incoherent answers. [address] HEENT: Atraumatic, sclera anicteric, mucous membranes dry, nasal cannula/ capnography in place. Film present on lips, oropharynx and dentures Cardiac: Regular rate and rhythm at time of examination without any appreciated murmurs Respiratory: Poor inspiratory effort, no wheeze or rhonchi appreciated at time of examination Abdomen: Obese, appears to be nontender, distended and firm to palpation Extremities: Bilateral lower extremity venous stasis changes Skin: Warm and dry Neuro: Cranial nerves II through XII appear to be grossly intact Psych: Patient arousable to voice, does not follow commands. Unable to assess cognitive ability though dementia at baseline IVs and Medications Medications Reviewed: Medications were reviewed in detail Lab and Diagnostics Result Diagram: 06/08/16 0230 06/08/16 0230 Microbiology Blood cultures aerobic and anaerobic negative to date Urine eosinophil smear negative X-Rays, CTs and MRIs . X-RAY CHEST ONE VIEW, PORTABLE IMPRESSION: Cardiomegaly as before, without acute cardiopulmonary disease. Dictated by: Freddy Jensen M.D. on 06/07/2016 at 18:49 CT BRAIN WITHOUT CONTRAST IMPRESSION: 1. No acute intracranial abnormalities. 2. Background periventricular and deep white matter chronic small vessel ischemic changes. 3. Scattered bilateral mastoid air cell fluid persists, suggesting mastoiditis. Dictated by: Freddy Jensen M.D. on 06/07/2016 at 20:15 CT ABDOMEN AND PELVIS WITHOUT CONTRAST IMPRESSION: 1. No evidence for small bowel obstruction. Scattered stool throughout the colon. 2. Mild cardiomegaly, with small circumferential pericardial effusion. 3. Small retrocardiac hiatal hernia. Dictated by: Freddy Jensen M.D. on 06/07/2016 at 20:20 X-RAY CHEST ONE VIEW, PORTABLE IMPRESSION: Cardiomegaly redemonstrated and mild interstitial prominence. Mild early developing pulmonary edema cannot be excluded. Dictated by: Evans SHARIF Interpreted: Leanna Mast MD on 06/08/2016 at 8:09 Additional Diagnostics DateTimeAnalyzed 09:39:00 -_ pH ____7.406 - 7.350 7.450 pCO2 ___41.6__ -mmHg 35.0 45.0 pO2 ___68.5__ -mmHg 69.0 116 HCO3- ___25.6__ -mmol/L 22.0 26.0 Assessment & Plan Ms. Murray is an 81-year-old woman recently located to [facility] from [place] , with a history of cerebrovascular disease, diabetes, suspected SIADH, bradycardia, and dementia, that presented to [facility] via EMS from [facility] with reports of increased confusion, nonsensical conversations, and decrease in ability to perform ADLs. She was admitted for evaluation and treatment of acute encephalopathy and hyponatremia. Hospital day 2 Encephalopathy, acute, present on admission. Ongoing - Patient was unable to answer most questions at time of admission - Most likely secondary to normal pressure hydrocephalus - history of same - Neurology consult - DDx: Recent addition of tramadol, underlying infection, hyponatremia, other electrolyte abnormalities, deficiencies - April 2016: E 12 1142, vitamin D 28, TSH and free T4 within reference range; ammonia on this admission 42 - UTox in ED negative; UA negative for leukocyte esterase, nitrates, bacteria - Treat underlying cause - NPO - Speech eval - Blood cultures obtained; PCT added - Avoid narcotic medications; avoid SSRIs (pharmacy states pt was recently started on Celexa and bactrim, which were not found in [employer]) - Promote healthy sleep-wake cycle; family reports that nursing home facility stated patient had been awake at night - Abx: Unasyn secondary to suspected ongoing bilateral mastoiditis evidenced on CT Acute kidney injury, present on admission. Active - Nephrology following, recommendations are appreciated - On admit: Creatinine 1.48 - trending down; previous values April 2016 were 0.59, 0.79, 0.66 - CT abdomen on admission did not reveal any abnormalities - Likely secondary to poor oral intake and recent fluid restrictions; no diuretics found on medication list through [employer]; Pharmacy states recent addition of Bactrim to med list - Hold gentle hydration secondary to SIADH suspicion - Avoid nephrotoxic medications, including Bactrim - Continue to monitor Elevated troponin of undetermined significance, likely acute, present on admission. Monitor - On admit: Troponin 0.20 - EKG: Normal sinus rhythm with rate 59, right bundle branch block without any acute ST/T changes; QTc 504 - Trending down Elevated TSH - Thyroid ablation/thyroidectomy 25 years ago - No thyroid supplementation medicines reported - Repeat labs ordered, possibility of lab error - If repeat labs remain elevated will start patient on levothyroxine 300 mcg IV 3 days after which point we will give 100 mcg daily Hyponatremia, acute on chronic, present on admission. 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 Ongoing - This was seen previous admission; pt recv'd 7d course abx - Per med rec, bactrim recently added to medication list; unsure Dx/indication - Not continuing bactrim at this time secondary to KARUNA - Consider high resolution bone scan; reassess patient as altered mental status subsides to assess for symptoms - Empiric antibiotics initiated: Unasyn 3 g every 6 hours - Fungal studies ordered, as patient is a diabetic Dementia, chronic. Presumed stable - No medications on file through [employer] - Current altered mental status, but family reports that this is not her baseline Non-insulin using diabetes mellitus, chronic. Presumed stable - No A1c on file - A1c pending - Patient has been hypoglycemic, requiring D5 amps Hypertension, chronic. Presumed stable - Resumed home medications: Amlodipine, hydralazine - Stop amlodipine - Start metoprolol 25 mg twice a day Hydrocephalus, chronic. Presumed stable - CT brain completed on admission, no acute intracranial abnormalities HFpEF, chronic. Presumed stable - Echo 04/2016: EF 65-70 with moderate mitral stenosis; noted to be a difficult study - Continue home medications as noted above Dyslipidemia, chronic. Presumed stable - Resumed home statin - Recent lipid profile April 2016: Total cholesterol 150, LDL 45, HDL 79, triglycerides 127 Chronic pain. Presumed stable - Physical therapy evaluation - Heat packs as needed - Avoidance of narcotics, acetaminophen only at this time Goals of care - POLST was provided by family: DNR/DNI - Photo copy of advance directives provided PRN: Fever/bowel/nausea/pain DVT: Heparin q8 GI: PPI Diet: Nothing by mouth CODE STATUS: DNR/DNI Disposition: Patient remains inpatient status - continuing to ascertain underlying causes of hyponatremia Pain Evaluation: Adequate Pain Control GI Prophylaxis: Proton Pump Inhibitor VTE Prophylaxis: Sub-Q Heparin (Unfractionated) Resuscitation Status: DNR/DNI:Do Not Resuscitate/Intubate Attending Statement The patient was seen and examined together with Dr. Zelaya on 06/08/2016 and I agree with the history, exam and plan as outlined in the note above. . REYMUNDO ZELAYA DO Jun 08, 2016 11:00 Devaughn Evans MD Jun 10, 2016 08:38
--- NOTE | 2016-06-08 14:50 | NUR ---
Social Work: Attempted Assessment D: FROG FARMER attempted to complete assessment however pt is not able to engage with FROG FARMER. Pt's daughter/family is not at bedside. FROG FARMER attempted to make telephone contact however there was no answer and no way to leave a message. Pt comes from [facility] where she was recently completing Rehab. Pt previously lived at [facility]. FROG FARMER spoke with Jeanette Yadav, yoga coordinator at [facility]. She states that they can accept the pt back if the family wishes for her to complete rehab. They had previously been working with the family on a discharge from their facility to [facility]. A: The pt is w/c bound with baseline dementia. P: Evolving; FROG FARMER to continue to attempt contact with pt's family to confirm discharge plan. Anticipate pt to either discharge back to [facility] for rehab versus [facility] for memory care. AMRIK Nuñez
--- NOTE | 2016-06-08 18:45 | CONS ---
[address] [address] CONSULTATION REPORT PATIENT: MARIA C MONIQUE : 1935 MR#: [id number] ADMIT: 06/07/2016 JOB ID: [id number] RENAL CONSULTATION: DATE OF SERVICE: 06/08/2016 HISTORY: The patient is a rather unfortunate, 81-year-old, white female, who was admitted to [facility] for declining mental status and hyponatremia. Renal consultation is being sought for further evaluation and management of her acute hyponatremia. She was admitted to the hospital several weeks ago with a very similar presentation. 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 This was discontinued and she was placed on fluid status with improvement in her sodium. Unfortunately, she has had a progressive decline in her mental status, according to her daughter, for at least six months since she had a stroke. She apparently had a stroke up in [place], [place] and was hospitalized. She was diagnosed as having hydrocephalus, however, she was not seen by any neurologist. She underwent what sounds like a lumbar puncture with drainage of some fluid without significant improvement in her volume status. Unfortunately, much of her history is piecemeal and difficult to put together. Her daughter states that she is currently living at [facility] and had been eating well. Unfortunately, she has been having a considerable amount of sundowning where she sleeps during the day and is awake all night and is quite agitated. She has also had symptoms of paranoia, incontinence, and difficulty walking. Whether this is due to the underlying possible normal-pressure hydrocephalus or progression of her dementia remains unknown. She has been taking nourishment without problems. There has been no nausea, vomiting, diarrhea, fever, or chills. In the emergency room, she was found to have a sodium of 124 and a normal blood pressure with a blood pressure 109/61, and a pulse of 61. She was empirically treated with 100 mL of 3% saline and Nephrology was not consulted. Subsequent workup of this showed a plasma osmolarity of 263, urine osmolarity of 526 and a urine sodium of 178. Upon admission, eventually fluids were stopped and the patient was placed on fluid restriction. PAST MEDICAL HISTORY: Significant for hypertension, dementia, possible normal pressure hydrocephalus, [id number] diabetes mellitus, spinal stenosis, COPD, hypertension and prior stroke. PAST SURGICAL HISTORY: Significant for a right knee replacement, spinal fusion and cataract surgery. ALLERGIES: To VAL IN[employer]ITORS but unknown reaction. SOCIAL HISTORY: There is no history of any current alcohol, tobacco, or illicit drugs and she is a resident at [facility], however, she has excellent family support. FAMILY HISTORY: Unknown. REVIEW OF SYSTEMS: As detailed above, otherwise is unobtainable. PHYSICAL EXAMINATION: Revealed a pale, chronically ill-appearing, 81-year-old, white female, who was minimally arousable. Her blood pressure was 151/75, pulse rate is 66. HEENT examination is remarkable for pale sclerae and dry mucous membranes, but I do need to note that she is a mouth breather. Neck is supple without adenopathy, thyromegaly or jugular venous distention. Lungs are clear, though she had a poor inspiratory effort. Heart was regular and rhythmical though somewhat distant. Abdomen was soft and tympanic to percussion with diminished bowel sounds. There was no tenderness, rebound, guarding or masses. Extremities did not show any evidence of any clubbing, cyanosis, or edema. Skin turgor was good. There was no evidence of any rashes. LABORATORY EXAMINATION: Her white count is 9.2, hemoglobin is 10.8, hematocrit 32.7. Sodium was 125, potassium 4.6, chloride of 88, bicarbonate of 22, BUN and creatinine were 18 and 1.21. Her urine osmolarity was 526. Urine sodium is 178 and serum osmolarity was 263. Her TSH was elevated at 91, however, several weeks ago this was normal and I do suspect lab error. IMPRESSION: 1. Hyponatremia most likely secondary to syndrome of inappropriate antidiuretic hormone. 2. Normal-pressure hydrocephalus. 3. Questionable hypothyroidism. RECOMMENDATION: I would like to put her on a 1000 mL fluid restriction and recheck her thyroid function. I would also strongly urge a neurology consult. Once again, I would like to thank you for allowing me to participate in the care of this most pleasant and interesting patient. I will be following her closely with you.
[2016-06-08] MEDS: Levothyroxine 100 mCg/5 mL Inj IV SCH (19:51)
--- NOTE | 2016-06-08 22:00 | NUR ---
Low blood sugar/Mentation/Telemetry Blood sugar checked q1h and noted to be trending low. Blood sugar as low 69 and provided 25ml D50. Blood sugar went up to 140 but slowly trending down again. made aware with new order. Pt continue to be drowsy awaken with stimuli and mumbles. She does not hold her attention for very long and falls back to sleep. Telemetry SB in 40s to 50s. 02sat in mid 90s on 2L. RR 12-13.ABG done.
--- NOTE | 2016-06-08 22:50 | ABG ---
DateTimeAnalyzed 22:47:00 -_ pH ____7.417 - 7.350 7.450 pCO2 ___41.2__ -mmHg 35.0 45.0 pO2 ___78.6__ -mmHg 69.0 116 HCO3- ___26.0__ -mmol/L 22.0 26.0 ABE ____1.9__ -mmol/L -2.0 2.0 tHb ___11.1__ -g/dL O2Hb ___94.5__ -% COHb ____1.0__ -% MetHb ____1.0__ -% sO2 ___96.4__ -% FIO2 ___21.0__ -% Drawn By MK - Date/Time Notified____ 22:50:00 -_ B 762 -mmHg tO2 ___14.8__ -Vol% OrderingPhysicianInitials mf - Cole test _Positive -
[2016-06-08] MEDS ORDERED: 23.4% Sodium Chloride Inj 154 MEQ in Dextrose 10% 1,000 ML IV SCH (23:00)
--- NOTE | 2016-06-08 23:59 | NUR ---
Tx to CCU Pt moved to Room 2020 around 2300 for close monitoring. Daughter Hansa called and updated of the changes.
[2016-06-09] VITALS (7 sets, daily range): BP systolic 117–137; BP diastolic 43–61; PULSE 51–61; RESP 16–18; O2SAT 92–98
[2016-06-09] MEDS: Heparin 5,000 Unit/mL Inj SUBQ SCH ×3 (00:38→16:28)
[2016-06-09] MEDS: Ampicillin-Sulbactam Inj 3,000 MG in 0.9% Sodium Chloride 100 ML IV SCH ×4 (02:48→21:25)
[2016-06-09 04:32] LABS: BASOPHILS % (AUTO) 0.8 % (0-3); EOSINOPHILS % (AUTO) 7.6 % (0-5); MONOCYTES % (AUTO) 12.6 % (4-12); Mean Corpuscular Volume 84.6 fL (81-100); NEUTROPHILS % (AUTO) 50.5 % (40-74); Platelet Count 273 bil/L (150-400)
[2016-06-09 04:57] LABS: Magnesium 1.7 mg/dL (1.6-2.6)
--- NOTE | 2016-06-09 05:20 | NUR ---
Mentation/BG Patient has been lethargic. Awaken with stimuli and at times would scream or grab staff during care. She mumbles words and ask questions during care sometimes. Pt noted to fall back to sleep afterwards. BG checks done q1h. BG range 74-86. Md made aware with new orders noted. Huang patent with 600 cc joanna urine noted this shift.
[2016-06-09] MEDS: Pantoprazole 4 mg/mL 10 mL Inj IVPUSH SCH (07:56)
[2016-06-09] MEDS: Insulin LISPRO 300 Unit/3 mL Inj SUBQ SCH ×4 (08:00→21:24)
--- NOTE | 2016-06-09 09:43 | NUR ---
Evaluation completed. Please go to "Notes" then click on "Assessments and Notes" (bottom left corner of screen). Then select appropriate discipline tab on top of screen.
[2016-06-09] MEDS: Levothyroxine 100 mCg/5 mL Inj IV SCH (10:52)
--- NOTE | 2016-06-09 11:47 | PCM.PNMED ---
Subjective Date of Service Jun 09, 2016 Subjective Overnight: Patient continued to have hypoglycemia throughout the night as low as 69. Continue be given 25 mL of D50 with short-term resolution of blood sugars though quickly trending back down. Patient remained somnolent throughout the night. Telemetry showed sinus bradycardia in the 40s and 50s with saturation levels in the mid 90s. She was transferred to the CCU secondary to a more intensive need for blood sugar monitoring. Nephrology consult it overnight and agreed to change patient's glucose requirements from D50 to D10 drip at 40 ml/hr. Today: Patient arousable to voice, does not respond appropriately to questions. States she does not know where she is. Does not state any specific pain or discomfort. Exam Vital Signs Vital Sign - Last Date Time Temp Pulse Resp B/P Pulse Ox O2 Delivery O2 Flow Rate FiO2 06/09/16 11:22 36.7 51 17 117/54 98 Nasal Cannula 2.00 Intake and Output 06/08/16 06/08/16 06/09/16 Cumulative From/Thru 15:00 23:00 07:00 06/07/16 17:59 - 06/09/16 06:14 Intake Total 385 ml 479 ml 2454 ml Output Total 900 ml 600 ml 2400 ml Balance -515 ml -121 ml 54 ml Intake Oral 0 ml 0 ml 0 ml IV Total 385 ml 479 ml 2454 ml Output Urine Total 900 ml 600 ml 2400 ml # Voids 1 1 # Bowel Movements 0 0 0 Exam General: Obese female lying supine in bed in no acute distress. Arousable to voice though incoherent answers. HEENT: Atraumatic, sclera anicteric, mucous membranes dry, nasal cannula/ capnography in place. Film remains present on lips, oropharynx and dentures Cardiac: Regular rate and rhythm at time of examination without any appreciated murmurs Respiratory: Poor inspiratory effort, mild expiratory wheezes bilaterally heard best upper anterior lobes. Abdomen: Obese, appears to be nontender, distended and firm to palpation Extremities: Bilateral lower extremity venous stasis changes Skin: Warm and dry Neuro: Cranial nerves II through XII appear to be grossly intact Psych: Patient arousable to voice, does not follow commands. Unable to assess cognitive ability though dementia at baseline IVs and Medications Medications Reviewed: Medications were reviewed in detail Lab and Diagnostics Result Diagram: 06/09/16 0425 06/09/16 0425 Microbiology Blood cultures aerobic and anaerobic negative to date Urine eosinophil smear negative X-Rays, CTs and MRIs . X-RAY CHEST ONE VIEW, PORTABLE IMPRESSION: Cardiomegaly as before, without acute cardiopulmonary disease. Dictated by: Freddy Jensen M.D. on 06/07/2016 at 18:49 CT BRAIN WITHOUT CONTRAST IMPRESSION: 1. No acute intracranial abnormalities. 2. Background periventricular and deep white matter chronic small vessel ischemic changes. 3. Scattered bilateral mastoid air cell fluid persists, suggesting mastoiditis. Dictated by: Freddy Jensen M.D. on 06/07/2016 at 20:15 CT ABDOMEN AND PELVIS WITHOUT CONTRAST IMPRESSION: 1. No evidence for small bowel obstruction. Scattered stool throughout the colon. 2. Mild cardiomegaly, with small circumferential pericardial effusion. 3. Small retrocardiac hiatal hernia. Dictated by: Freddy Jensen M.D. on 06/07/2016 at 20:20 X-RAY CHEST ONE VIEW, PORTABLE IMPRESSION: Cardiomegaly redemonstrated and mild interstitial prominence. Mild early developing pulmonary edema cannot be excluded. Dictated by: Evans SHARIF Interpreted: Leanna Mast MD on 06/08/2016 at 8:09 Additional Diagnostics DateTimeAnalyzed 09:39:00 -_ pH ____7.406 - 7.350 7.450 pCO2 ___41.6__ -mmHg 35.0 45.0 pO2 ___68.5__ -mmHg 69.0 116 HCO3- ___25.6__ -mmol/L 22.0 26.0 DateTimeAnalyzed 22:47:00 -_ pH ____7.417 - 7.350 7.450 pCO2 ___41.2__ -mmHg 35.0 45.0 pO2 ___78.6__ -mmHg 69.0 116 HCO3- ___26.0__ -mmol/L 22.0 26.0 Assessment & Plan Ms. Murray is an 81-year-old woman recently located to [facility] from [place] , with a history of cerebrovascular disease, diabetes, suspected SIADH, bradycardia, and dementia, that presented to [facility] via EMS from [facility] with reports of increased confusion, nonsensical conversations, and decrease in ability to perform ADLs. She was admitted for evaluation and treatment of acute encephalopathy and hyponatremia. Hospital day 3 Encephalopathy, chronic, present on admission. Ongoing - Patient was unable to answer most questions at time of admission - Most likely secondary to normal pressure hydrocephalus - history of same - Neurology consult ordered, recommendations are appreciated - DDx: Recent addition of tramadol, underlying infection, hyponatremia, other electrolyte abnormalities, deficiencies - April 2016: E 12 1142, vitamin D 28, TSH and free T4 within reference range; ammonia on this admission 42 - UTox in ED negative; UA negative for leukocyte esterase, nitrates, bacteria - Treat underlying cause - NPO - Speech eval- recommends nectar thick diet - Blood cultures obtained; PCT added - Avoid narcotic medications; avoid SSRIs (pharmacy states pt was recently started on Celexa and bactrim, which were not found in [facility]) - Promote healthy sleep-wake cycle; family reports that jail facility stated patient had been awake at night - Abx: Unasyn secondary to suspected ongoing bilateral mastoiditis evidenced on CT Syndrome of inappropriate antidiuretic hormone secretion, acute , present on admission, ongoing - Was likely secondary to Celexa use, recent admission for same - Patient was restarted on Celexa at SNF though this medication was discontinued upon her discharge. Acute kidney injury, present on admission. Active - Nephrology following, recommendations are appreciated - On admit: Creatinine 1.48 - trending down; previous values April 2016 were 0.59, 0.79, 0.66 - CT abdomen on admission did not reveal any abnormalities - Likely secondary to poor oral intake and recent fluid restrictions; no diuretics found on medication list through [facility]; Pharmacy states recent addition of Bactrim to med list - Hold gentle hydration secondary to SIADH suspicion - Avoid nephrotoxic medications, including Bactrim - Continue to monitor Elevated troponin of undetermined significance, likely acute, present on admission. Monitor - On admit: Troponin 0.20 - EKG: Normal sinus rhythm with rate 59, right bundle branch block without any acute ST/T changes; QTc 504 - Trending down Elevated TSH - Thyroid ablation/thyroidectomy 25 years ago - No thyroid supplementation medicines reported from [facility] - Repeat labs ordered, possibility of lab error - Start (06/08/2016) levothyroxine 300 mcg IV 3 days after which point we will give 100 mcg daily (on 06/11/2016) Hyponatremia, acute on chronic, present on admission. 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 Ongoing - This was seen previous admission; pt recv'd 7d course abx - Per med rec, bactrim recently added to medication list; unsure Dx/indication - Not continuing bactrim at this time secondary to KARUNA - Consider high resolution bone scan; reassess patient as altered mental status subsides to assess for symptoms - Empiric antibiotics initiated: Unasyn 3 g every 6 hours - Fungal studies ordered, as patient is a diabetic Hypoglycemia, present on admission, acute, ongoing - Required continual amps of D50 to maintain sugars. - Per nephrology transition to D10 and S at 40 mL per hour Dementia, chronic. Presumed stable - No medications on file through [facility] - Current altered mental status, but family reports that this is not her baseline Non-insulin using diabetes mellitus, chronic. Presumed stable - A1c 6.2 - Patient has been hypoglycemic, requiring D50 amps Hypertension, chronic. Presumed stable - Resumed home medications: Amlodipine, hydralazine - Stop amlodipine - Start metoprolol 25 mg twice a day Hydrocephalus, chronic. Presumed stable - CT brain completed on admission, no acute intracranial abnormalities HFpEF, chronic. Presumed stable - Echo 04/2016: EF 65-70 with moderate mitral stenosis; noted to be a difficult study - Continue home medications as noted above Dyslipidemia, chronic. Presumed stable - Resumed home statin - Recent lipid profile April 2016: Total cholesterol 150, LDL 45, HDL 79, triglycerides 127 Chronic pain. Presumed stable - Physical therapy evaluation - Heat packs as needed - Avoidance of narcotics, acetaminophen only at this time Goals of care - POLST was provided by family: DNR/DNI - Photo copy of advance directives provided PRN: Fever/bowel/nausea/pain DVT: Heparin q8 GI: PPI Diet: Nothing by mouth CODE STATUS: DNR/DNI Disposition: Patient remains inpatient status - continuing to ascertain underlying causes of hyponatremia. Palliative care to consultation to discuss goals of care Pain Evaluation: Adequate Pain Control GI Prophylaxis: Proton Pump Inhibitor VTE Prophylaxis: Sub-Q Heparin (Unfractionated) VTE Mechanical Devices: Intermittant Pneumatic CD Resuscitation Status: DNR/DNI:Do Not Resuscitate/Intubate Attending Statement The patient was seen and examined together with Dr. Zelaya on 06/09/2016 and I agree with the history, exam and plan as outlined in the note above. . REYMUNDO ZELAYA DO Jun 09, 2016 11:47 Devaughn Evans MD Jun 10, 2016 08:38
--- NOTE | 2016-06-09 12:12 | NUR ---
Activity/ speech evaluation Patient was responding by opening her eyes to verbal commands or touch, some verbal response but with mumbled speech. Patient was staying awake for short yas and following asleep in 1-3min. She remained confused /disoriented X3 but was able to follow some simple commends when awake. Speech therapy evaluation took place today- patient was able to take sips of nectar thick fluids and some pure food with 1:1 supervision per Speech Therapist recommendation. Continue Q1h glucose monitoring please see computer documentation for blood glucose results. EEG today as part of Neurology follow up.
--- NOTE | 2016-06-09 13:32 | PROCED ---
[address] [address] EEG PATIENT: MARIA C MONIQUE : 1935 MR#: [id number] ADMIT: 06/07/2016 JOB ID: [id number] DATE: 06/09/2016 REQUESTING PHYSICIAN: Dr. Juma Woody CLINICAL HISTORY: The patient is an 81-year-old female with confusion, history of diabetes, SIADH, bradycardia, stroke and acute encephalopathy. On admission, May 03, no antiepileptic medications on board. DESCRIPTION: While awake and with eyes closed, there are 6 hertz rhythmic and symmetric waveforms seen over the occipital head region which attenuate with eye opening. There are no focal lateralizing or epileptiform abnormalities seen throughout the recording. The patient appears to enter sleep where there is further slowing of the background rhythm. Activation: Photic activation does not reveal any photic driving and no photoparoxysmal discharges. Hyperventilation could not be performed due to lack of cooperation. Rhythm strip shows regular rhythm with occasional PVCs and bradycardic rate. IMPRESSION: Abnormal electroencephalogram due to slowing. No evidence of epileptiform abnormalities or ongoing seizure activity to explain confusion. No pattern to suggest metabolic encephalopathy. Clinical correlation advised.
--- NOTE | 2016-06-09 13:52 | PCM.PNNEPH ---
Juma Woody DO 06/09/16 1351: Subjective Date of Service Jun 09, 2016 Subjective The patient denies chest pain, headaches, nausea or abdominal pain. She states that she feels tired and may have some blurring of her vision. Exam Vital Signs Vital Sign - Last Date Time Temp Pulse Resp B/P Pulse Ox O2 Delivery O2 Flow Rate FiO2 06/09/16 11:22 36.7 51 17 117/54 98 Nasal Cannula 2.00 Intake and Output 06/08/16 06/08/16 06/09/16 Cumulative From/Thru 15:00 23:00 07:00 06/07/16 17:59 - 06/09/16 06:14 Intake Total 385 ml 479 ml 2454 ml Output Total 900 ml 600 ml 2400 ml Balance -515 ml -121 ml 54 ml Intake Oral 0 ml 0 ml 0 ml IV Total 385 ml 479 ml 2454 ml Output Urine Total 900 ml 600 ml 2400 ml # Voids 1 1 # Bowel Movements 0 0 0 Exam General: Obese female lying supine in bed in no acute distress. Patient is AOx1 and does not know the current president but did know when told in [facility] that she is [facility]. EYES: Pupils round and reactive right pupil is irregular shaped oblique, with some mild horizontal nystagmus, EOMI, anicteric sclera and noninjected but pain conjunctiva HENT: Atraumatic, mucous membranes dry, nasal cannula/capnography in place. Thick white film consistent with katiuska remains present on lips, oropharynx and dentures Cardiac: Regular rate and rhythm at time of examination without any appreciated murmurs Respiratory: Poor inspiratory effort, mild expiratory wheezes bilaterally heard best upper anterior lobes. no rhonchi or rales noted Abdomen: Obese, nontender, nondistended and no organomegally, normoactive BS Extremities: Bilateral lower extremity venous stasis changes, very mild pitting edema in lower extremities, no cyanosis Skin: Warm and dry Neuro: Cranial nerves II through XII appear to be grossly, upgoing babinski bilaterally, poor reflexes at patellar and brachioradialis. Patient arousable to voice, and does answer questions and follow commands appropriately. 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 X-RAY CHEST ONE VIEW, PORTABLE IMPRESSION: Cardiomegaly as before, without acute cardiopulmonary disease. Dictated by: Freddy Jensen M.D. on 06/07/2016 at 18:49 CT BRAIN WITHOUT CONTRAST IMPRESSION: 1. No acute intracranial abnormalities. 2. Background periventricular and deep white matter chronic small vessel ischemic changes. 3. Scattered bilateral mastoid air cell fluid persists, suggesting mastoiditis. Dictated by: Freddy Jensen M.D. on 06/07/2016 at 20:15 CT ABDOMEN AND PELVIS WITHOUT CONTRAST IMPRESSION: 1. No evidence for small bowel obstruction. Scattered stool throughout the colon. 2. Mild cardiomegaly, with small circumferential pericardial effusion. 3. Small retrocardiac hiatal hernia. Dictated by: Freddy Jensen M.D. on 06/07/2016 at 20:20 X-RAY CHEST ONE VIEW, PORTABLE IMPRESSION: Cardiomegaly redemonstrated and mild interstitial prominence. Mild early developing pulmonary edema cannot be excluded. Dictated by: Evans SHARIF Interpreted: Leanna Mast MD on 06/08/2016 at 8:09 Additional Diagnostics DateTimeAnalyzed 09:39:00 -_ pH ____7.406 - 7.350 7.450 pCO2 ___41.6__ -mmHg 35.0 45.0 pO2 ___68.5__ -mmHg 69.0 116 HCO3- ___25.6__ -mmol/L 22.0 26.0 DateTimeAnalyzed 22:47:00 -_ pH ____7.417 - 7.350 7.450 pCO2 ___41.2__ -mmHg 35.0 45.0 pO2 ___78.6__ -mmHg 69.0 116 HCO3- ___26.0__ -mmol/L 22.0 26.0 Plan Impression 81yoF with history of dementia, stroke and thyroidectomy presents with altered mental status, refractory hypoglycemia and hyponatremia 1. Hyponatremia most likely secondary to syndrome of inappropriate antidiuretic hormone. 2. possible Normal-pressure hydrocephalus. 3. myxedema coma/hypothyroidism 4. Hypoglycemia Plan: 1. Hyponatremia most likely secondary to syndrome of inappropriate antidiuretic hormone. - fluid restriction less than 1L daily 2. possible Normal-pressure hydrocephalus. - likely altered mental status at presentation is more due to myxedema coma - LP performed in [place] gives hydrocephalus as a possibility but no neurologic consult obtained - EEG shows defuse slowing abnormality - neurology consult 3. myxedema coma/hypothyroidism - replace thyroid hormone 4. Hypoglycemia - D10 at 40ml/hr - endocrinology consult Robert Hanley DO 06/09/16 1520: Subjective Subjective Nephrology attending: Pt much more awake and alert, sodium 127. Pt. seen w/ Dr Woody and the case fully discussed. I agree with the findings above and plan. Exam Lab and Diagnostics Result Diagram: 06/09/165 06/09/165 Plan Plan: Nephrology attending: Patient was seen with the internal medicine resident and case was discussed and I agree with the findings above. Juma Woody DO Jun 09, 2016 13:51 Robert Hanley DO Jun 09, 2016 15:20
--- NOTE | 2016-06-09 13:54 | NUR ---
NUTRITION ASSESSMENT: ASSESS:81 YO female with dementia presented to [facility] via EMS from [facility] with reports of increased confusion, nonsensical conversations, and decrease in ability to perform ADLs. She was admitted for evaluation and treatment of acute encephalopathy and hyponatremia. Patient remained somnolent throughout the night. Telemetry showed sinus bradycardia. She was transferred to the CCU secondary to a more intensive need for blood sugar monitoring. Nephrology consulted and agreed to change patient's glucose requirements from D50 to D10 drip at 40 ml/hr. Per neurology, electroencephalogram abnormal. Diet unable to be advanced beyond stimulation, nectar thick liquids. Patient is somnolent today; do not expect PO intake to meet her needs. Code status: DNR / DNI. PMHx:Dementia, CVA, type 2 diabetes, SIADH, dyslipidemia, hydrocephalus, CHF, HTN, Scoliosis, thyroidectomy. DIET:Stimulation, nectar thick liquids. PO intake not yet recorded. LABS: Reviewed. Na 127, Chloride 90, Ca 8.3, Alb 3.7. MEDICATIONS: Reviewed. Lopressor, melatonin, synthroid. NUTRITION FOCUSED PHYSICAL ASSESSMENT: GI symptoms / stool: No stool reported.Jacob: 11 Skin Integrity: Wound consult initiated related to low Jacob; evaluation pending. ANTHROPOMETRICS: Current Wt: 83.9 kgBMI: 36.0 kg/m2. IBW: 45.5 kg (184.6% IBW) ESTIMATED NEEDS (CLASS II OBESITY) Calories: 1000 / 1136 kcal (22 - 25 kcal / kg IBW) Protein: 82 - 91 g protein (1.8 - 2.0 g / kg IBW) Fluid: Approx. 2098 mL (25 mL / kg BW) NUTRITION DIAGNOSIS: 1)Chewing / swallowing difficulties related to previous CVA, dementia, as evidenced by inability to tolerate diet beyond stimulation / nectar thick liquid texture. INTERVENTION: 1) Will closely monitor diet advance, PO intake, for possible addition of supplements. MONITOR/EVALUATE: Diet advance / tolerance, PO intake, labs, GI/nutrition status. Follow up per moderate nutrition risk guidelines.
--- NOTE | 2016-06-09 15:23 | NUR ---
Social Work: Initial Assessment D: CONNIE SCRATCHER met with pt's dtr at bedside. She confirms that the pt came from [place] initially but has been at [facility] for Rehab. They have been working to transition the pt to [facility] but would like the pt to go back to [facility] for a short stay before transitioning to [facility]. Jeanette from [facility] stated on 06/08 that they could accept the pt back with Dr. Lopez to follow if they wished for pt to complete rehab. Pt is w/c bound at baseline. She continues to be confused and is not yet medically stable for discharge at this time. A: Pt who has baseline dementia. P: Anticipate pt to discharge back to [facility] for a short rehab stay and then transition to [facility] when appropriate. AMRIK Nuñez Addendum: 06/09/16 at 1526 by ANGELO WARD Amended: Links added.
--- NOTE | 2016-06-09 15:43 | NUR ---
spiritual care: follow up conversational visit with dtr in corridor. Dtr shared updates and reflections about pt's condition, and the larger family system in terms of energy, caregiving and values. per dtrs request, i arranged for [employer] visitor over weekend if possible. prayer for support as dtr sifts through many points of decision.
--- NOTE | 2016-06-09 15:46 | NUR ---
Transfer Patient appeared to be more conversational this early afternoon but she remained confused and forgetful. Patient tolerated PO intake well within her diet restriction. Patient was transferred to [facility]-telemetry room 2030 -report was given to the receiving RN prior to transfer.
--- NOTE | 2016-06-09 19:09 | NUR ---
PCC transfer/restraints DC/Tele Sinus toya 50s, denies chest pain. Denies SOB, SPO2 92% on RA. Huang cath patent and draining joanna urine to gravity. Abdomen Pt awaken with moderate stimuli. Patient alert and oriented to self and knows she is in [facility]. She frequently needs cueing on where she is/why she got here -- drowsy and speech mumbled at times. BG at 1730 low 100s. Tolerating stimulation diet well.
[2016-06-10] VITALS (7 sets, daily range): BP systolic 127–154; BP diastolic 53–77; PULSE 50–73; RESP 18–22; O2SAT 94–98
--- NOTE | 2016-06-10 00:25 | NUR ---
BLOOD SUGARS/MENTATION Pt's BS 168, no insulin given. Pt extremely confused, repeatedly pushing call light for questions that were asked minutes prior. Pt c/o having to pee, forgetting she has a hunt cath in. Pt is fidgety and restless, picking at blankets, moving tele cords, pushing call lights, rubbing a rosary. Pt's vitals stable with no c/o pain, no other issues noted at this time. Addendum: 06/10/16 at 0504 by DIVINE ZIEGLER RN BS @ 0400 were 87, pt tolerating stim diet well, gave pudding. Rechecked BS @ 0500 BS 93. Pt encouraged to snack this AM.
[2016-06-10] MEDS: Ampicillin-Sulbactam Inj 3,000 MG in 0.9% Sodium Chloride 100 ML IV SCH ×4 (02:12→21:01)
[2016-06-10] MEDS: Heparin 5,000 Unit/mL Inj SUBQ SCH ×3 (02:12→17:41)
[2016-06-10 04:33] LABS: BASOPHILS % (AUTO) 0.9 % (0-3); EOSINOPHILS % (AUTO) 9.9 % (0-5); MONOCYTES % (AUTO) 11.9 % (4-12); Mean Corpuscular Hemoglobin 28.5 pg (27.0-35.0); Mean Corpuscular Volume 84.7 fL (81-100); Platelet Count 257 bil/L (150-400)
[2016-06-10 04:47] LABS: Magnesium 1.6 mg/dL (1.6-2.6)
[2016-06-10] MEDS: Insulin LISPRO 300 Unit/3 mL Inj SUBQ SCH ×4 (07:43→21:01)
[2016-06-10] MEDS: Pantoprazole 4 mg/mL 10 mL Inj IVPUSH SCH (07:57)
[2016-06-10] MEDS: Levothyroxine 100 mCg/5 mL Inj IV SCH (08:01)
--- NOTE | 2016-06-10 08:40 | NUR ---
Respiratory Pt assessed found supine in bed breathing RA. Sat 95-97%, Hr 55, RR 15, Bs scattered rhonchi in LRL. Pt has weak, ineffective cough, states no SOB at this time. Informed Pt Tx available, not sure if Pt understands what Tx is or why she might ask for it.
--- NOTE | 2016-06-10 11:37 | NUR ---
Evaluation completed. Please go to "Notes" then click on "Assessments and Notes" (bottom left corner of screen). Then select appropriate discipline tab on top of screen.
--- NOTE | 2016-06-10 12:48 | PCM.PNMED ---
Subjective Date of Service Jun 10, 2016 Subjective Overnight: Patient's blood sugars continued to be low. She had episodes of sinus bradycardia maintaining a rate in the 50s throughout most the night though is reported to be as low as 20-30 at one time. She remained confused throughout the shift. No other reports Today: Patient awake and alert laying in hospital bed with daughter at bedside. She states no specific complaints of pain or discomfort, does perseverate questions overall is confused as to situation though has periods of lucency. She seems to be aware that she will be discharged to [facility] facility transitioned to [facility] Exam Vital Signs Vital Sign - Last Date Time Temp Pulse Resp B/P Pulse Ox O2 Delivery O2 Flow Rate FiO2 06/10/16 11:28 36.8 63 22 150/65 97 Room Air 06/09/16 11:22 2.00 Intake and Output 06/09/16 06/09/16 06/10/16 Cumulative From/Thru 14:59 22:59 06:59 06/07/16 17:59 - 06/10/16 06:48 Intake Total 450 ml 100 ml 3004 ml Output Total 500 ml 725 ml 3625 ml Balance -50 ml -625 ml -621 ml Intake Oral 450 ml 0 ml 450 ml IV Total 100 ml 2554 ml Output Urine Total 500 ml 725 ml 3625 ml # Voids 1 # Bowel Movements 1 1 2 Exam General: Obese female lying supine in bed in no acute distress. Awake and alert and able to answer questions somewhat appropriately. Per daughter bedside - closer to baseline HEENT: Atraumatic, sclera anicteric, mucous membranes dry, nasal cannula/ capnography in place. Cardiac: Bradycardic rate and rhythm at time of examination without any appreciated murmurs Respiratory: Poor inspiratory effort, mild expiratory wheezes bilaterally heard best upper anterior lobes. Abdomen: Obese, soft nontender to palpation 4 quadrants. Positive bowel tones Extremities: Bilateral lower extremity venous stasis changes Skin: Warm and dry Neuro: Cranial nerves II through XII appear to be grossly intact Psych: Arousable to voice, able to follow commands A&O 2/4 IVs and Medications Medications Reviewed: Medications were reviewed in detail Lab and Diagnostics Result Diagram: 06/10/1641906/10/16419 Microbiology Blood cultures aerobic and anaerobic negative to date Urine eosinophil smear negative X-Rays, CTs and MRIs . X-RAY CHEST ONE VIEW, PORTABLE IMPRESSION: Cardiomegaly as before, without acute cardiopulmonary disease. Dictated by: Freddy Jensen M.D. on 06/07/2016 at 18:49 CT BRAIN WITHOUT CONTRAST IMPRESSION: 1. No acute intracranial abnormalities. 2. Background periventricular and deep white matter chronic small vessel ischemic changes. 3. Scattered bilateral mastoid air cell fluid persists, suggesting mastoiditis. Dictated by: Freddy Jensen M.D. on 06/07/2016 at 20:15 CT ABDOMEN AND PELVIS WITHOUT CONTRAST IMPRESSION: 1. No evidence for small bowel obstruction. Scattered stool throughout the colon. 2. Mild cardiomegaly, with small circumferential pericardial effusion. 3. Small retrocardiac hiatal hernia. Dictated by: Freddy Jensen M.D. on 06/07/2016 at 20:20 X-RAY CHEST ONE VIEW, PORTABLE IMPRESSION: Cardiomegaly redemonstrated and mild interstitial prominence. Mild early developing pulmonary edema cannot be excluded. Dictated by: Evans DEL ANGEL Interpreted: Leanna Mast MD on 06/08/2016 at 8:09 Additional Diagnostics DateTimeAnalyzed 09:39:00 -_ pH ____7.406 - 7.350 7.450 pCO2 ___41.6__ -mmHg 35.0 45.0 pO2 ___68.5__ -mmHg 69.0 116 HCO3- ___25.6__ -mmol/L 22.0 26.0 DateTimeAnalyzed 22:47:00 -_ pH ____7.417 - 7.350 7.450 pCO2 ___41.2__ -mmHg 35.0 45.0 pO2 ___78.6__ -mmHg 69.0 116 HCO3- ___26.0__ -mmol/L 22.0 26.0 EEG IMPRESSION: Abnormal electroencephalogram due to slowing. No evidence of epileptiform abnormalities or ongoing seizure activity to explain confusion. No pattern to suggest metabolic encephalopathy. Clinical correlation advised. Dorys Good MD 06/09/16 6783 Assessment & Plan Ms. Murray is an 81-year-old woman recently located to [facility] from [place] , with a history of cerebrovascular disease, diabetes, suspected SIADH, bradycardia, and dementia, that presented to [facility] via EMS from [facility] with reports of increased confusion, nonsensical conversations, and decrease in ability to perform ADLs. She was admitted for evaluation and treatment of acute encephalopathy and hyponatremia. Hospital day 4 Encephalopathy, chronic, present on admission. Ongoing - Patient was unable to answer most questions at time of admission - Possibly secondary to normal pressure hydrocephalus - history of same - Neurology consult ordered, recommendations are appreciated - DDx: Recent addition of tramadol, underlying infection, hyponatremia, other electrolyte abnormalities, deficiencies - April 2016: E 12 1142, vitamin D 28, TSH and free T4 within reference range; ammonia on this admission 42 - UTox in ED negative; UA negative for leukocyte esterase, nitrates, bacteria - Treat underlying cause - NPO - Speech eval- recommends nectar thick diet - Blood cultures obtained; PCT added - Avoid narcotic medications; avoid SSRIs (pharmacy states pt was recently started on Celexa and bactrim, which were not found in [facility]) - Promote healthy sleep-wake cycle; family reports that [facility] facility stated patient had been awake at night - Abx: Unasyn secondary to suspected ongoing bilateral mastoiditis evidenced on CT Syndrome of inappropriate antidiuretic hormone secretion, acute , present on admission, ongoing - Nephrology following, recommendations are appreciated - Was likely secondary to Celexa use, recent admission for same - Patient was restarted on Celexa at [facility] though this medication was discontinued upon her discharge from her last hospital stay - Do not give any SSRIs to patient Acute kidney injury, present on admission. Active - Nephrology following, recommendations are appreciated - On admit: Creatinine 1.48 - trending down; previous values April 2016 were 0.59, 0.79, 0.66 - CT abdomen on admission did not reveal any abnormalities - Likely secondary to poor oral intake and recent fluid restrictions; no diuretics found on medication list through [employer]; Pharmacy states recent addition of Bactrim to med list - Hold gentle hydration secondary to SIADH suspicion - Avoid nephrotoxic medications, including Bactrim - Continue to monitor Elevated troponin of undetermined significance, likely acute, present on admission. Monitor - On admit: Troponin 0.20 - EKG: Normal sinus rhythm with rate 59, right bundle branch block without any acute ST/T changes; QTc 504 - Trending down Hypothyroidism. Chronic. Present on admission. Ongoing - Thyroid ablation/thyroidectomy 25 years ago - No thyroid supplementation medicines reported from SNF - Daughter provided medication sheet home dose levothyroxine 88 mcg daily - Repeat labs ordered, possibility of lab error - Start (06/08/2016) levothyroxine 300 mcg IV 3 days after which point we will give 100 mcg daily (on 06/11/2016) Hyponatremia, acute on chronic, present on admission. 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 Ongoing - This was seen previous admission; pt recv'd 7d course abx - Per med rec, bactrim recently added to medication list; unsure Dx/indication - Not continuing bactrim at this time secondary to KARUNA - Consider high resolution bone scan; reassess patient as altered mental status subsides to assess for symptoms - Empiric antibiotics initiated: Unasyn 3 g every 6 hours - Fungal studies ordered, as patient is a diabetic Hypoglycemia, present on admission, acute, ongoing - Required continual amps of D50 to maintain sugars. - Per nephrology transition to D10 and S at 40 mL per hour Dementia, chronic. Presumed stable - No medications on file through [employer] - Current altered mental status, but family reports that this is not her baseline Non-insulin using diabetes mellitus, chronic. Presumed stable - A1c 6.2 - Patient has been hypoglycemic, requiring D50 amps Hypertension, chronic. Presumed stable - Resume home amlodipine - Stop metoprolol secondary to hemodynamic state - Stop hydralazine secondary to hemodynamic state Hydrocephalus, chronic. Presumed stable - CT brain completed on admission, no acute intracranial abnormalities HFpEF, chronic. Presumed stable - Echo 04/2016: EF 65-70 with moderate mitral stenosis; noted to be a difficult study - Continue some home medications as noted above - As heart failure is diastolic in nature we will discontinue metoprolol Dyslipidemia, chronic. Presumed stable - Resumed home statin - Recent lipid profile April 2016: Total cholesterol 150, LDL 45, HDL 79, triglycerides 127 Chronic pain. Presumed stable - Physical therapy evaluation - Heat packs as needed - Avoidance of narcotics, acetaminophen only at this time Goals of care - POLST was provided by family: DNR/DNI - Photo copy of advance directives provided PRN: Fever/bowel/nausea/pain DVT: Heparin q8 GI: PPI Diet: Nothing by mouth CODE STATUS: DNR/DNI Disposition: Patient remains inpatient status - awaiting transition to SNF followed by memory care anticipated discharge in 1-2 days Pain Evaluation: Adequate Pain Control GI Prophylaxis: Proton Pump Inhibitor VTE Prophylaxis: Sub-Q Heparin (Unfractionated) VTE Mechanical Devices: Intermittant Pneumatic CD Resuscitation Status: DNR/DNI:Do Not Resuscitate/Intubate Attending Statement The patient was seen and examined together with Dr. Zelaya on 06/10/2016 and I agree with the history, exam and plan as outlined in the note above. . REYMUNDO ZELAYA DO Jun 10, 2016 12:48 Devaughn Evans MD Jun 11, 2016 14:37
[2016-06-11] MEDS: Heparin 5,000 Unit/mL Inj SUBQ SCH ×2 (00:31→09:07)
[2016-06-11] MEDS: Ampicillin-Sulbactam Inj 3,000 MG in 0.9% Sodium Chloride 100 ML IV SCH ×2 (02:26→08:50)
[2016-06-11 03:29] LABS: BASOPHILS % (AUTO) 0.6 % (0-3); MONOCYTES % (AUTO) 11.1 % (4-12); Mean Corpuscular Hemoglobin 28.3 pg (27.0-35.0); Mean Corpuscular Volume 82.6 fL (81-100); NEUTROPHILS % (AUTO) 48.8 % (40-74); Platelet Count 251 bil/L (150-400)
[2016-06-11 03:57] LABS: Magnesium 1.5 mg/dL (1.6-2.6)
[2016-06-11 04:20] VITALS: BP 161/67; PULSE 66; RESP 14; O2SAT 95
--- NOTE | 2016-06-11 05:35 | NUR ---
Uneventful Night Pt remains pleasantly confused. Rested intermittently during the night. No complaints of pain or discomfort. SOB with exertion. Denies n/v. Frequent turning during the night. Huang intact, draining to gravity. Call light within reach. Hourly rounding. Pleasant and cooperative with care.
[2016-06-11] MEDS: Insulin LISPRO 300 Unit/3 mL Inj SUBQ SCH ×2 (08:00→13:12)
[2016-06-11] MEDS ORDERED: Levothyroxine 100 mCg/5 mL Inj IV SCH (08:30)
[2016-06-11 08:58] VITALS: BP 174/69; PULSE 74; RESP 18; O2SAT 100
[2016-06-11] MEDS: Pantoprazole 4 mg/mL 10 mL Inj IVPUSH SCH (09:52)
--- NOTE | 2016-06-11 11:01 | NUR ---
Social Work: Readiness for d/c Data: Pt is on day 4 of hospitalization. EMR reviewed. Pt discussed in rounds, MD states pt ready for d/c today. C[facility]LE D[facility] called [facility] who is setting up transportation for 1pm today. CATTLE DIPPER notified , RN, and pt's daughter, all updated and agreeable to plan. CATTLE DIPPER awaiting MD orders to fax to facility. CATTLE DIPPER will continue to follow. Assessment: Pt from SNF. Plan: Pt will d/c back to [facility] [place] today via cabulance set up by [facility] at 1pm. CATTLE DIPPER notified , RN, and pt's daughter, all updated and agreeable to plan. CATTLE DIPPER awaiting MD orders to fax to facility. CATTLE DIPPER will continue to follow. AMRIK Arellano
[2016-06-11] MEDS ORDERED: AMOX-366 PO (11:07)
--- NOTE | 2016-06-11 11:16 | PCM.DIMED ---
eJan Pierre Reagan DO 06/11/16 1116: Discharge Instructions Date of Service Jun 11, 2016 Dates of Hospitalization Jun 07, 2016 at 22:23 Discharge Diagnosis Discharge Diagnosis Encephalopathy, chronic, present on admission. Resolving Syndrome of inappropriate antidiuretic hormone secretion, acute , present on admission, improving Acute kidney injury, present on admission. Active Elevated troponin of undetermined significance, likely acute, present on admission. Monitor Hypothyroidism. Chronic. Present on admission. Ongoing Hyponatremia, acute on chronic, present on admission. Under evaluation Bilateral mastoiditis, chronic, present on admission. Ongoing Hypoglycemia, present on admission, acute, resolved Dementia, chronic. Presumed stable Non-insulin using diabetes mellitus, chronic. Presumed stable Hypertension, chronic. Presumed stable Hydrocephalus, chronic. Presumed stable HFpEF, chronic. Presumed stable Dyslipidemia, chronic. Presumed stable Chronic pain. Presumed stable Medication Instructions During this hospitalization you were started on new medication and some of your home medications were discontinued. Unless otherwise directed, please follow these medication instructions. Note that your physician may continue to change your medication regimen. New medication: - Augmentin 875-125mg. Take one tablet by mouth twice daily for the next 10 days. - Levothyroxine 88mcg. Take one tablet by mouth every morning on an empty stomach. Wait 30 minutes before eating or taking other medications. Medication changes: - Stop valsartan 320mg. Discuss with your primary care physician on when to restart this medication. - Do NOT take Celexa or other serotonin reuptake inhibitors. Continue your other home medications. Take them as directed. Activity Other (Physical Therapy at [facility]) Call your provider Fever or Chills, Excessive diarrhea, Weakness (unilateral) Patient Instructions You should follow up with your physician to discuss this hospitalization. A referral to ENT should be considered to address the mastoiditis. Follow-up plan Transfer of care to [facility] for rehabilitation. Follow-up with PCP in: 1 week Devaughn Evans MD 06/11/16 1438: Discharge Instructions Attending's Statement The patient was seen and examined together with Dr. Reagan on 06/11/2016 and I agree with the history, exam and plan as outlined in the note above. . Jean Pierre Reagan DO Jun 11, 2016 11:16 Devaughn Evans MD Jun 11, 2016 14:38
--- NOTE | 2016-06-11 11:49 | NUR ---
Social Work: Discharge Data: Pt is on day 4 of hospitalization. D/C orders are in. Orders faxed to [facility]. [facility] [place] confirmed cabulance time of 1PM. [employer] will continue to follow. Assessment: Pt from SNF. Plan: Pt will d/c back to [facility] today via cabulance set up by [facility] at 1pm. [employer] notified , RN, and pt's daughter, all updated and agreeable to plan. [employer] awaiting MD orders to fax to facility. [employer] will continue to follow. AMRIK Arellano
[2016-06-11 13:16] VITALS: BP 134/67; PULSE 74; RESP 18; O2SAT 96
--- NOTE | 2016-06-11 13:58 | NUR ---
Discharge Pt ordered for discharge/transfer to [facility]. Pt alert and forgetful. Verbal report phoned to [facility] at about 1350. pt transported via cabulance/ wheelchair at about 1345.
--- NOTE | 2016-06-12 17:08 | PCM.DC.MED ---
Discharge Summary Date of Service June 12, 2016 Dates of Hospitalization Date of Hospital Admission Jun 07, 2016 at 22:23 Date of Discharge: Jun 11, 2016 Providers: Admitting Physician: Ray Morgan MD Primary Care Physician: Nopcp Attending Physician: Ray Morgan MD Diagnosis at Time of Discharge Diagnosis at Time of Discharge Encephalopathy, chronic, present on admission. Resolving Syndrome of inappropriate antidiuretic hormone secretion, acute , present on admission, improving Acute kidney injury, present on admission. Active Elevated troponin of undetermined significance, likely acute, present on admission. Monitor Hypothyroidism. Chronic. Present on admission. Ongoing Hyponatremia, acute on chronic, present on admission. Under evaluation Bilateral mastoiditis, chronic, present on admission. Ongoing Hypoglycemia, present on admission, acute, resolved Dementia, chronic. Presumed stable Non-insulin using diabetes mellitus, chronic. Presumed stable Hypertension, chronic. Presumed stable Hydrocephalus, chronic. Presumed stable HFpEF, chronic. Presumed stable Dyslipidemia, chronic. Presumed stable Chronic pain. Presumed stable Consultations Dr. Robert Hanley of Nephrology Procedures XRay, CTs & MRIs . X-RAY CHEST ONE VIEW, PORTABLE IMPRESSION: Cardiomegaly as before, without acute cardiopulmonary disease. Dictated by: Freddy Jensen M.D. on 06/07/2016 at 18:49 CT BRAIN WITHOUT CONTRAST IMPRESSION: 1. No acute intracranial abnormalities. 2. Background periventricular and deep white matter chronic small vessel ischemic changes. 3. Scattered bilateral mastoid air cell fluid persists, suggesting mastoiditis. Dictated by: Freddy Jensen M.D. on 06/07/2016 at 20:15 CT ABDOMEN AND PELVIS WITHOUT CONTRAST IMPRESSION: 1. No evidence for small bowel obstruction. Scattered stool throughout the colon. 2. Mild cardiomegaly, with small circumferential pericardial effusion. 3. Small retrocardiac hiatal hernia. Dictated by: Freddy Jensen M.D. on 06/07/2016 at 20:20 X-RAY CHEST ONE VIEW, PORTABLE IMPRESSION: Cardiomegaly redemonstrated and mild interstitial prominence. Mild early developing pulmonary edema cannot be excluded. Dictated by: Evans SHARIF Interpreted: Leanna Mast MD on 06/08/2016 at 8:09 Other Diagnostics DateTimeAnalyzed 09:39:00 -_ pH ____7.406 - 7.350 7.450 pCO2 ___41.6__ -mmHg 35.0 45.0 pO2 ___68.5__ -mmHg 69.0 116 HCO3- ___25.6__ -mmol/L 22.0 26.0 DateTimeAnalyzed 22:47:00 -_ pH ____7.417 - 7.350 7.450 pCO2 ___41.2__ -mmHg 35.0 45.0 pO2 ___78.6__ -mmHg 69.0 116 HCO3- ___26.0__ -mmol/L 22.0 26.0 EEG IMPRESSION: Abnormal electroencephalogram due to slowing. No evidence of epileptiform abnormalities or ongoing seizure activity to explain confusion. No pattern to suggest metabolic encephalopathy. Clinical correlation advised. Dorys Good MD 06/09/16 1245 Brief History Per admit note by Dr. Karina Young dated 06/06/2016: Ms. Murray is an 81-year-old woman recently located to [facility] from [place] , with a history of cerebrovascular disease, diabetes, suspected SIADH, bradycardia, and dementia, that presented to [facility] via EMS from [facility] with reports of increased confusion, nonsensical conversations, and decrease in ability to perform ADLs. She was admitted for evaluation and treatment of acute encephalopathy and hyponatremia. Hospital day 1 Multiple family members are present at time of evaluation, and provide much history of the patient, as the patient is confused to location and date. The patient is able to converse at a minimal level, and is able to appropriately respond when questioned about presence of pain, nausea, vomiting, abdominal pain , all of which, she denies. She also denies any chest pain or discomfort. She does note that her legs are cramping, and during this evaluation, her legs appear restless. Family members present sure that the patient has been increasingly confused over the most recent 2-3 days, above her baseline dementia status. They note that she has been babbling nonsense when asked questions, but does intermittently respond appropriately to some questions. Patient currently reports the date as in the "1800" and believes her current location is in her apartment. The patient is unable to recall the events leading to this admission. Family shared that earlier today, she was unable to feed herself, a task she was able to perform days prior to admission. The family shares that they were quite concerned with her condition at time of arrival to the emergency department, but do note that she has mildly improved since arrival. The family states they are aware of her recent medication change , a recent addition of an SSRI, but they are unable to name the medication. They believe the medication was started approximately a week or 2 ago. They share that this presentation is similar to her presentation approximately one month ago for similar symptoms in addition to the finding of hyponatremia. Family denies any observance of increased cough, productive cough, complaints of fever, chills, nausea, vomiting, or abdominal pain and days leading to admission. They do note that the leg cramping is new for the patient over the recent few days. She was recently admitted from May 06 to 05/11/2016 for acute encephalopathy suspected to be secondary to hyponatremia, in addition to bilateral mastoiditis which she completed a seven-day course of antibiotics. At that admission, SSRIs were discontinued, oxybutynin was also stopped. She was placed on a fluid restriction. She has been seen at the long term facility by providers, most recent documentation 05/12/2016. At that visit, it appears there were no medications added, however, the addition of tramadol was added . This is not an SSRI as the family has suspected. Are no SSRIs on her current medication list that we were able to obtain from [email or web address]. In the ED, patient was notably confused, unable to correctly identify the date or location, but was able to appropriately answer some questions, but not all. T 36.0, pulse 61, respiratory rate 11, blood pressure 109/61, 97% on 2 L nasal cannula; previous reading of 87% on room air. Family states she does wear oxygen at [facility]. Initial labs revealed WBC 8.9 with 6.0 eos, hemoglobin 12.2, platelets 332; sodium 124, potassium 5.1, creatinine 1.48, lactic acid 0.7 , ammonia 42, troponin 0.020. Blood cultures were obtained. Imaging included chest x-ray which revealed cardiomegaly which appeared stable, without acute cardiopulmonary disease; brain CT did not reveal any acute intracranial abnormalities, but periventricular deep white matter chronic small vessel ischemic changes were noted in addition to scattered bilateral mastoid fluid persistence suggestive of mastoiditis; CT abdomen and pelvis without contrast revealed a normal-appearing liver, spleen, and gallbladder, kidneys were normal in size without hydronephrosis or nephrolithiasis, there was no evidence for small bowel obstruction or other acute abdominal findings. Initial therapies in the emergency department included 1 L normal saline in addition to an NS 100 maintenance. She was seen in stable condition in the emergency department, awaiting transfer to hospital floor. Hospital Course Ms. Murray is an 81-year-old woman who recently located to [facility] from [place], with a history of cerebrovascular disease, diabetes, suspected SIADH, bradycardia, and dementia, that presented to [facility] ED via EMS from [facility] with reports of increased confusion, nonsensical conversations, and decrease in ability to perform ADLs. She was admitted for evaluation and treatment of acute encephalopathy and hyponatremia. #Encephalopathy, chronic, present on admission. Improved - Patient was unable to answer most questions at time of admission. - Urine toxicology screen negative; Urinalysis negative for leukocyte esterase, nitrates, bacteria - TSH was severely elevated (91.030) and Free T4 low (0.18). 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 Patient was started on thryoid supplementation as described below with improvement in mental status #Severe hypothyroidism. Present on admission. Resolving - Patient reportedly had a thyroid ablation/thyroidectomy approximately 25 years ago - There were no thyroid medications reported from the patient's SNF - Patient's daughter was able to confirm the patient's thyroid medication dose, levothyroxine 88 mcgdaily - Patient was started on loading dose of levothyroxine 300 mcg IV 3 days after which point she received 100mcg daily IV followed by her usual home PO dose of 88mcg daily #Hyponatremia, acute on chronic, present on admission. Improving - On admit: Sodium 124. 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 Resolved - Etiology suspected to be pre-renal due to poor oral intake - Nephrology was consulted during hospitalization - CT abdomen and pelvis did not reveal any genitourinary abnormalities or suggestion of obstruction - Bactrim was discontinued following admission #Elevated troponin of undetermined significance, acute. Present on admission - On admit Troponin 0.020 - EKG: Normal sinus rhythm with rate 59, right bundle branch block without any acute ST/T changes; QTc 504 - Likely secondary to KARUNA. Troponin was trended and eventually decreased to 0.012 #Bilateral mastoiditis, chronic, present on admission. Ongoing - Seen on previous admission - Antibiotic Unasyn 3g every 6 hours was started and switched to Augmentin on discharge for total antibiotic duration of 14 days - Recommend referral to ENT to ensure resolution #Hypoglycemia, acute. Present on admission, resolved - Patient initially required continual boluses of D50 to maintain blood glucose level - This was transitioned to D10NS at 40 mL per hour - Following thyroid replacement this improved and patient did not require additional glucose #Dementia, chronic. Presumed stable #Non-insulin using diabetes mellitus, chronic. Presumed stable - HbA1c 6.2%. Well controlled #Hypertension, chronic. Presumed stable - Most of her home antihypertensives including metoprolol and hydralazine were held on admit due to hypotension. - Her home antihypertensive regimen was slowly restarted - Patient advised to continue her home antihypertensive regimen on discharge #Hydrocephalus, chronic. Presumed stable - CT brain completed on admission, no acute intracranial abnormalities #HFpEF, chronic. Presumed stable - Echo 04/2016: EF 65-70 with moderate mitral stenosis; noted to be a difficult study #Dyslipidemia, chronic. Presumed stable - Patient was resumed on home statin during hospitalization - Recent lipid profile April 2016: Total cholesterol 150, LDL 45, HDL 79, triglycerides 127 #Chronic pain. Presumed stable - Physical therapy evaluated the patient - Heat packs were applied as needed - Narcotics were avoided during hosptialization due to encephalopathy Exam Vital Signs (Last) Date Time Temp Pulse Resp B/P Pulse Ox O2 Delivery O2 Flow Rate FiO2 06/11/16 13:16 37.1 74 18 134/67 96 Room Air 06/10/16 19:50 2.00 Test 06/07/16 17:54 06/07/16 18:36 06/08/16 02:15 06/08/16 02:30 Urine Color Yellow (YELLOW) Urine Appearance Hazy (CLEAR,HAZY) Urine pH 6.0 (5.0-8.0) Urine Specific Gary 1.030 (1.003-1.035) Urine Protein Tracemg/dL (NEG,TRACE) Urine Glucose (UA) Negativemg/dL (NEGATIVE) Urine Ketones Negativemg/dL (NEGATIVE) Urine Occult Blood Negative (NEGATIVE) Urine Nitrite Negative (NEGATIVE) Urine Bilirubin Negative (NEGATIVE) Urine Urobilinogen Normalmg/dL (NORMAL) Urine Leukocyte Esterase Negative (NEGATIVE) Urine RBC 0-2/hpf (0-2) Urine WBC 0-5/hpf (0-5) Urine Epithelial Cells Few/hpf (NONE-MOD) Urine Crystals None seen (NONE SEEN) Urine Bacteria Few/hpf (NONE-FEW) Urine Hyaline Casts Occasional/lpf (NONE) Urine Granular Casts None seen (NONE SEEN) Urine Waxy Casts None seen (NONE SEEN) Urine Red Blood Cell Casts None seen (NONE SEEN) Urine White Blood Cell Casts None seen (NONE SEEN) Urine Mucus None seen (None Seen) Urine Trichomonas None seen (NONE SEEN) Urine Yeast None (NONE SEEN) Urinalysis Comment None Urine Culture Reflexed Not indicated Hold Urine Received (Received) Ammonia 42ug/dL (18-53) Urine Osmolality 526mOs/kH2O (250-1200) Urine Random Sodium 178mEq/L Hemoglobin A1c 6.2% (4.8-5.6) Osmolality 263 (275-300) Lactic Acid Level 0.5mmol/L (0.4-2.0) Phosphorus Level 3.2mg/dL (2.5-4.9) Procalcitonin 0.09ng/mL (0.00-0.08) Aspergillus galactomannan Antigen 0.05Index (0.00-0.49) Test 06/08/16 15:20 06/08/16 22:32 06/10/16 04:20 06/11/16 03:20 Thyroid Stimulating Hormone (TSH) 84.050uIU/mL (0.450-4.500) Free Thyroxine 0.20ng/dL (0.82-1.77) Hold Blue Top Tube Received (Received) Hold Lenox Top Tube Received (Received) Hold Zaragoza Top Tube Received (Received) Troponin T 0.012ug/L (0.0-0.011) White Blood Count 8.0th/mm3 (3.8-10.1) Red Blood Count 3.96mil/mm3 (3.90-5.20) Hemoglobin 11.2g/dL (12.0-15.6) Hematocrit 32.7% (35.0-46.0) Mean Corpuscular Volume 82.6fL (81-100) Mean Corpuscular Hemoglobin 28.3pg (27.0-35.0) Mean Corpuscular Hemoglobin Concent 34.3% (32.0-37.0) Red Cell Distribution Width 13.9% (12.3-15.4) Platelet Count 251bil/L (150-400) Neutrophils (%) (Auto) 48.8% (40-74) Lymphocytes (%) (Auto) 32.3% (14-46) Monocytes (%) (Auto) 11.1% (4-12) Eosinophils (%) (Auto) 7.0% (0-5) Basophils (%) (Auto) 0.6% (0-3) Sodium Level 125mEq/L (134-144) Potassium Level 4.4mEq/L (3.5-5.2) Chloride Level 90mEq/L (97-108) Carbon Dioxide Level 23mmol/L (18-29) Blood Urea Nitrogen 8mg/dL (8-27) Creatinine 0.93mg/dL (0.57-1.00) Estimat Glomerular Filtration Rate 83mL/min (>59) Glucose Level 115mg/dL (60-99) Calcium Level 8.6mg/dL (8.5-10.1) Magnesium Level 1.5mg/dL (1.6-2.6) Total Bilirubin 0.3mg/dL (0.0-1.2) Aspartate Amino Transf (AST/SGOT) 16U/L (0-50) Alanine Aminotransferase (ALT/SGPT) 8U/L (0-32) Alkaline Phosphatase 63U/L (25-165) Total Protein 5.6g/dL (6.4-8.4) Albumin 3.5g/dL (3.4-5.0) Microbiology Results Blood cultures aerobic and anaerobic negative to date Urine eosinophil smear negative Discharge Medications Discharge Medications Albuterol Sulfate (Ventolin HFA Inhaler) 200 Puff/18 Gm Inhaler 2 PUFF INH Q6H ( Reported) Amlodipine (Amlodipine) 10 Mg Tablet 10 MG PO QAM (Reported) HOLD FOR SBP < 100 MM HG Amoxicillin/Clav K 875-125 mg (Augmentin 875-125 mg) 1 Each Tablet 1 TABLET PO BID Prescribed by: JEAN PIERRE LOPES DO Atenolol (Atenolol) 25 Mg Tablet 25 MG PO HS (Reported) HOLD FOR HR < 50 BPM Atorvastatin (Lipitor) 10 Mg Tab 5 MG PO HS (Reported) Brimonidine Tartrate (Brimonidine 0.2% Oph Soln) 5 Ml Drops 1 DROP BOTH_EYES BID (Reported) Calcium Carbonate (Calcium Carbonate) 600 Mg Tablet 600 MG PO BID (Reported) Clopidogrel (Clopidogrel) 75 Mg Tablet 75 MG PO QAM (Reported) Cyanocobalamin (Vitamin B-12) (Vitamin B-12) 1,000 Mcg Tablet 1,000 MCG PO QAM ( Reported) Ferrous Sulfate (Ferrous Sulfate) 325 Mg Tablet 325 MG PO QAM (Reported) Hydralazine (Hydralazine) 25 Mg Tablet 25 MG PO TID (Reported) HOLD FOR SBP < 100 MM HG Lactobacillus Acidophilus (Acidophilus) 1 Each Tablet 2 EACH PO BID (Reported) X 14 DAYS Levothyroxine (Levothyroxine) 88 Mcg Tablet 88 MCG PO QAM (Reported) Melatonin (Melatonin) 3 Mg Tablet 3 MG PO HS (Reported) Multivit with Calcium,Iron,Min (Therapeutic M) 1 Each Tablet 1 EACH PO QAM ( Reported) Omeprazole (Omeprazole) 20 Mg Capsule.dr 20 MG PO QAM (Reported) Oxybutynin Chloride ER (Oxybutynin Chloride ER) 10 Mg Tab.er.24 10 MG PO QAM ( Reported) Sennosides (Senna) 8.6 Mg Tablet 17.2 MG PO HS (Reported) Tramadol (Tramadol) 50 Mg Tablet 50 MG PO BID (Reported) Vitamin B Complex/Minerals (Sm Stress Formula+Zinc Tablet) 1 Each Tablet 1 EACH PO QAM (Reported) Zinc Oxide (Zinc Oxide) 57 Gm Oint...g. 1 APPLIC TP TID (Reported) TO BUTTOCKS TO PREVENT PRESSURE ULCER As needed Acetaminophen (Acetaminophen) 325 Mg Tablet 650 MG PO Q4H PRN PRN For Pain ( Reported) Calcium Carbonate (Tums) 500 Mg Tab.chew 500 MG PO TID PRN PRN For Dyspepsia or Heartburn (Reported) Magnesium Hydroxide (Milk of Magnesia) 400 Mg/5 Ml Oral.susp 30 ML PO DAILY PRN PRN For Constipation (Reported) 1ST LINE IF NO BOWEL MOVEMENT IN 3 DAYS Tramadol (Tramadol) 50 Mg Tablet 50 MG PO Q6H PRN PRN For Pain (Reported) Additional med instructions During this hospitalization you were started on new medication and some of your home medications were discontinued. Unless otherwise directed, please follow these medication instructions. Note that your physician may continue to change your medication regimen. New medication: - Augmentin 875-125mg. Take one tablet by mouth twice daily for the next 10 days. - Levothyroxine 88mcg. Take one tablet by mouth every morning on an empty stomach. Wait 30 minutes before eating or taking other medications. Medication changes: - Stop valsartan 320mg. Discuss with your primary care physician on when to restart this medication. - Do NOT take Celexa or other serotonin reuptake inhibitors. Continue your other home medications. Take them as directed. Followup Plan Follow-up plan Transfer of care to [facility] for rehabilitation. Discharge Activity: Other (Physical Therapy at [facility]) Patient Instructions You should follow up with your physician to discuss this hospitalization. A referral to ENT should be considered to address the mastoiditis. Follow-up with PCP in: 1 week Time spent Greater than 30 minutes was spent in preparation of discharge with greater than 50% of that time dedicated to patient counseling and coordination of care. . Attending Statement The patient was seen and examined together with Dr. Lopes on 06/11/2016 and I agree with the history, exam and plan as outlined in the note above. . copies to: [facility] Jean Pierre Lopes DO June 12, 2016 17:07 Devaughn Evans MD June 12, 2016 17:54 - Do NOT take Celexa or other serotonin reuptake inhibitors. Continue your other home medications. Take them as directed. Followup Plan Follow-up plan Transfer of care to [facility] for rehabilitation. Discharge Activity: Other (Physical Therapy at [facility]) Patient Instructions You should follow up with your physician to discuss this hospitalization. A referral to ENT should be considered to address the mastoiditis. Follow-up with PCP in: 1 week Jean Pierre Lopes DO June 12, 2016 17:07
== END 2016-06-11 13:50 | DRG 643 ==
LOC: EDBD 17:37 → SED 17:37 → EDUNIT# 17:37 → PCC 22:23 → CCU 06-08 23:10 → PCC 06-09 09:45
PROVIDERS: ADMIT Hospitalist; ATTEND Hospitalist
PROC: 4A00X4Z Measurement of Central Nervous Electrical Activity, External Approach (ICD-10-PCS; principal; 2016-06-07)
PROC: 4A033R1 Measurement of Arterial Saturation, Peripheral, Percutaneous Approach (ICD-10-PCS; 2016-06-08)
DX: E22.2 Syndrome of inappropriate secretion of antidiuretic hormone (principal); G93.40 Encephalopathy, unspecified; E03.5 Myxedema coma; N17.9 Acute kidney failure, unspecified; I50.32 Chronic diastolic (congestive) heart failure; G91.2 (Idiopathic) normal pressure hydrocephalus; T43.225A Adverse effect of selective serotonin reuptake inhibitors, initial encounter; E11.649 Type 2 diabetes mellitus with hypoglycemia without coma; I10 Essential (primary) hypertension; F03.90 Unspecified dementia, unspecified severity, without behavioral disturbance, psychotic disturbance, mood disturbance, and anxiety; H70.13 Chronic mastoiditis, bilateral; G89.29 Other chronic pain; R79.89 Other specified abnormal findings of blood chemistry; Z96.651 Presence of right artificial knee joint; Z66 Do not resuscitate; Z87.891 Personal history of nicotine dependence; Z79.02 Long term (current) use of antithrombotics/antiplatelets; Z86.73 Personal history of transient ischemic attack (TIA), and cerebral infarction without residual deficits; E78.5 Hyperlipidemia, unspecified